=== PATIENT | female | born 1945 | race Caucasian/White ===

== ENCOUNTER 2016-11-10 07:15 | Inpatient (IN) | payer MEDICARE, OTHER, BC ==
[2016-11-10 08:01] LABS: Albumin * 2.9 gm/dl (3.4-5.0); Anion Gap 12.8 mmol/L (6.8-13.8); BUN/Creatinine Ratio 40.3 (9.0-21.6); Bilirubin, Total 0.7 mg/dL (0.0-1.1); Ca. Corrected For Albumin 9.8 mg/dL (8.4-10.2); Calcium * 9.2 mg/dL (7.9-10.9); Carbon Dioxide 28.7 mmol/L (24-32.6); Potassium 4.5 mmol/L (3.4-4.6); Total Protein 6.5 gm/dL (6.2-8.2)
[2016-11-10 08:03] LABS: Hematocrit 44.8 % (37.0-47.0); Hemoglobin 13.2 gm/dL (12.5-16.0); Mean Cell Volume 80.9 fl (78-100); Mean Corpuscular Hemoglobin 23.8 pg (27-31); Mean Corpuscular Hgb Conc 29.5 g/dl (32-36); Mean Platelet Volume 9.7 fl (6.0-9.5); Neutrophil # 14.1 K/mm3 (1.3-6.0); Neutrophil % 89.7 % (42-75.0); Platelet Count 255 K/mm3 (150-450); Red Blood Count 5.54 M/mm3 (4.2-5.4); White Blood Count 15.7 K/mm3 (4.0-10.5)
[2016-11-10] MEDS ORDERED: DILTIAZEM HCL 5 MG/ML VIAL IV ONE ×2 (08:03→08:48)
[2016-11-10] MEDS ORDERED: FLUCONAZOLE 100 MG TABLET PO ONE (08:04)
[2016-11-10] MEDS ORDERED: VANCOMYCIN HCL 1 GM in DEXTROSE 5 % IN WATER 250 ML IV ONE ×4 (08:04→11:15)
[2016-11-10] MEDS ORDERED: NORMAL SALINE 1,000 ML IV ONE ×2 (08:05→09:49)
[2016-11-10] MEDS ORDERED: ALBUTEROL SULFATE/IPRATROPIUM 3 ML NEBU IH ONE ×2 (08:07→08:47)
[2016-11-10] MEDS ORDERED: FLUCONAZOLE 100 MG TABLET ONE (08:47)
[2016-11-10] MEDS: LEVOFLOXACIN/D5W 750 MG/150 ML BAG IV SCH (08:57)
[2016-11-10] MEDS ORDERED: DILTIAZEM HCL 30 MG TABLET PO ONE (09:50)
[2016-11-10] MEDS ORDERED: NORMAL SALINE 1,000 ML IV PRN (09:51)
--- NOTE | 2016-11-10 10:05 | ERNOTE ---
Medical Problem HPI - Narrative Date of Service: 11/10/16 - General Chief Complaint: General Assessment Time Seen by Provider: 11/10/16 07:57 Source: patient, family Exam Limitations: no limitations - Immun/Allergies/Home Medications Immunizations: IMMUNIZATION HX History of Influenza Vaccine No Hx Pneumococcal Vaccination No Allergies/Adverse Reactions: Allergies Penicillins Allergy (Verified 11/10/16 07:25) Home Medications: HOME MEDICATIONS Hydrochlorothiazide [Hydrodiuril] 25 mg PO DAILY 11/10/16 [Last Taken Unknown] Insulin Glargine,Hum.rec.anlog [Lantus] 10 units SC HS 11/10/16 [Last Taken Unknown] Propranolol HCl 40 mg PO DAILY 11/10/16 [Last Taken Unknown] glipiZIDE [Glucotrol] 10 mg PO DAILY@0700 11/10/16 [Last Taken Unknown] - History of Present History Narrative: Patient comes due to weakness, palpitations, fever, and severe skin rash that is getting worse. Timing: constant Severity: moderate Modifying Factors - (Improves): Present: other - nothing Modifying Factors - (Worsens): Present: other - nothing Review of Systems - Review of Systems Constitutional: Present: fever, chills, weakness, malaise EYE: Present: no symptoms reported ENT: Present: no symptoms reported Respiratory: Present: cough, orthopnea. Absent: shortness of breath Cardiology: Present: palpitations, edema. Absent: chest pain, syncope, claudication Gastrointestinal/Abdominal: Absent: nausea, vomiting, diarrhea, constipation, abdominal pain Genitourinary: Present: frequency Musculoskeletal: Present: muscle pain Skin: Present: lesions - multiple target lesion on the L hip, breast, area Neurological: Present: weakness - generalize Endocrine: Present: increased urine Hematologic/Lymphatic: Present: no symptoms reported Psych: Present: no symptoms reported - Patient's Past Medical History Patient History - Medical: Diabetes Type 2 Insulin Dependent, Obesity, Other - A. Fib Patient History - Cardiac/Respiratory: Hypertension Patient History - Cancer: No Hx of Cancer Patient History - Surgical Procedures: Cholecystectomy Patient History - Other: None - Social History Living Situations: home Psych History: No pertinent hx Alcohol Use: none - Immunizations Hx Pneumococcal Vaccination: No History of Influenza Vaccine: No Physical Exam - Physical Exam General Appearance: Present: wd/wn, alert, anxious, obese Eye Exam: Normal inspection: bilateral, PERRL: bilateral, EOMI: bilateral Ears, Nose, Throat: Present: normal pharynx, dry mucous membranes. Absent: hearing decreased, nasal congestion Neck: Present: normal inspection, nontender. Absent: carotid bruit Respiratory: Present: no respiratory distress, normal breath sounds, no accessory muscle use, chest nontender, lungs clear Cardiovascular/Chest: Present: tachycardia, irregularly irregular, systolic murmur - 3/6 Gastrointestinal/Abdominal: Present: soft. Absent: distended, guarding, rebound Back Exam: Present: normal inspection, no CVA tenderness Extremity Exam: Present: pelvis stable. Absent: no edema, bony tenderness Neurological Exam: Present: alert, oriented, normal mood/affect, normal cerebellar test Skin Exam: Present: skin rash - Patient with multiple target lesion below the breasts, L Hip, and pubic area. Patient has associated cellulitis and clear secretions on the area.. Absent: diaphoresis, cyanosis, jaundice Lymphatic Exam: Present: no adenopathy ED Progress - Date and Time Seen: Date and Time: 11/10/16 10:03 Patient's case was presented to Hospitalist and accepted for admission. - Results and Orders Patient's Lab Results:: I have reviewed the patient's lab results. Results and Orders: CBC: Elevated WBC LA: Negative Trop: Negative Procalcitonin: Positive CMP: Elevated Glucose, BUN and Creat - Vital Signs Patient's Vital Signs:: I have reviewed the patient's vital signs. Vital Signs: Vital Signs 11/10/16 11/10/16 11/10/16 07:16 07:31 07:49 Temperature 37.2 C Pulse Rate 137 H 142 H 137 H Respiratory 25 H 28 H 23 H Rate Blood Pressure 103/62 119/63 118/64 O2 Sat by Pulse 87 L 96 94 Oximetry 11/10/16 11/10/16 11/10/16 08:34 08:55 09:05 Temperature Pulse Rate 138 H 137 H 121 H Respiratory 17 18 Rate Blood Pressure 95/65 150/98 148/88 O2 Sat by Pulse 96 92 Oximetry 11/10/16 11/10/16 09:20 09:41 Temperature Pulse Rate 106 H 109 H Respiratory 20 17 Rate Blood Pressure 114/53 134/110 O2 Sat by Pulse 90 99 Oximetry - EKG EKG: atrial fibrillation - Patient knows about it since a couple of months. It was told to her by her previous PCP. EKG read: Interp. by me EKG Comments: A. Fib with FVR (HR: 127), No ST elevation, limited due to moment. - X-Ray X-Ray #1 X-Ray: chest X-ray Comments: No acute processes reported by Radiologist. - Progress/Reassessment Chief Complaint: General Assessment Progress:: Improved - Transfer of Care Expected Disposition: Admit Departure - Departure Clinical Impression: Dehydration Cellulitis Qualifiers: Site of cellulitis: unspecified site Qualified Code(s): L03.90 - Cellulitis, unspecified Disposition: [facility] Condition: Fair
[2016-11-10] MEDS ORDERED: NYSTATIN 30 APPL TUBE TP ONE (10:52)
[2016-11-10] MEDS ORDERED: DILTIAZEM HCL 120 MG CAP.SR.24H PO ONE (11:02)
[2016-11-10] MEDS ORDERED: FUROSEMIDE 10 MG/ML VIAL IV STA (14:32)
[2016-11-10] MEDS ORDERED: SPIRONOLACTONE 25 MG TABLET PO STA (14:33)
[2016-11-10] MEDS ORDERED: DIGOXIN 0.25 MG/ML AMPUL IV STA (14:35)
--- NOTE | 2016-11-10 14:36 | HP ---
Chief Complaint - Chief Complaint Date of Service: 11/10/16 Time of Service: 14:56 Chief Complaint: wweakness and worsening rash for the last few days. History of Present Illness: Patient is a 71-year-old WF with history of HTN, poorly controlled T2 DM, Chronic Afib [not on treatment], morbid obesity [BMI of 54] who came into the ER because of increasing weakness and a rash which was progressively worsening especially in the folds of her abdomen, under the breasts, between her thighs etc. She denies any fevers or chills. Patient used to see Dr. Carter, however has not seen her for some time. Patient is a very poor historian - Patient's Past Medical History Patient History - Medical: Diabetes Type 2 Insulin Dependent, Obesity Patient History - Cardiac/Respiratory: Hypertension Patient History - Cancer: No Hx of Cancer Patient History - Surgical Procedures: Cholecystectomy - in the Patient History - Other: None - Family History Mother Family History - Medical: - 50 DM, rheumatic heart disease Father Family History - Medical: - 70sstroke, HTN. - Social History Living Situations: spouse Psych History: No pertinent hx Smoking Status: Former smoker Have you smoked in the past 12 months: No Alcohol Use: none - Immunizations Hx Pneumococcal Vaccination: No History of Influenza Vaccine: No Review Of Systems (GEN) - Review of Systems Generalized/Overall Review: Present: Weakness, Weight gain Respiratory: Present: Shortness of Breath Cardiac: Present: Edema Abdominal: Absent: Nausea, Vomiting Skin: Present: Lesions, Rash Immunizations: IMMUNIZATION HX History of Influenza Vaccine No Hx Pneumococcal Vaccination No Allergies/Adverse Reactions: Allergies Allergy/AdvReac Type Severity Reaction Status Date / Time Penicillins Allergy Verified 11/10/16 07:25 Home Medications: HOME MEDICATIONS Hydrochlorothiazide [Hydrodiuril] 25 mg PO DAILY 11/10/16 [Last Taken Unknown] Insulin Glargine,Hum.rec.anlog [Lantus] 10 units SC HS 11/10/16 [Last Taken Unknown] Propranolol HCl 40 mg PO DAILY 11/10/16 [Last Taken Unknown] glipiZIDE [Glucotrol] 10 mg PO DAILY@0700 11/10/16 [Last Taken Unknown] Exam - Exam Vital Signs: Vital Signs - Last Taken Temp 36.7 C 11/10/16 11:03 Pulse 127 H 11/10/16 13:25 Resp 24 H 11/10/16 11:03 BP 135/70 11/10/16 11:09 Pulse Ox 96 11/10/16 11:03 Constitutional: Present: Elderly, Morbidly obese, Looks Older than stated age - in NAD on 2L O2 ENT Exam: Present: hearing grossly normal, moist mucous membranes Eye Exam: bilateral eye: PERRL, EOMI Neck: Present: normal inspection, trachea midline Respiratory: Present: decreased breath sounds. Absent: no accessory muscle use Cardiovascular/Chest: Present: irregularly irregular Peripheral Pulses: carotid (R): 2+, carotid (L): 2+ Abdomen: Present: Normal bowel sounds - large PANNUS present, soft, nontender /Rectal: Present: Exam deferred Extremity: Present: normal inspection, pedal edema - 2+ Skin Exam: Present: warm/dry, skin rash - rash all over body and in between folds of the skin [ abd/ breasts, flexures]; open areas on sacral area. Neurologic: Present: alert, oriented x 3, depressed affect Eye contact: Present: cooperative, good eye contact, normal speech Diagnostic Studies: Laboratory Tests 11/10/16 07:45 WBC 15.7 H Hgb 13.2 Hct 44.8 Plt Count 255 11/10/16 07:45 Plasma Sodium 142 Potassium 4.5 Chloride 103 Carbon Dioxide 28.7 BUN 75 H Creatinine 1.86 H Est GFR (Non-Af Amer) 28 L Random Glucose 227 H Calcium Adj for Albumin 9.8 Total Bilirubin 0.7 AST 13 ALT 11 L Alkaline Phosphatase 76 Total Protein 6.5 Albumin 2.9 L 11/10/16 08:00 Lactic Acid, Venous 1.7 Troponin I 0.018 Procalcitonin 0.60 H Assessment/Plan - Narrative Narrative: 1. Afib with RVR: Patient has known the diagnosis for some time. Has had intermittent palpitations since then. As BP is low to normal, try lanoxin .25 mg IV mg Q6H x 4 doses. 2. Fluid overload from sepsis protocol: Furosemide 60 mg IV and spironolactone 12.5 mg PO. Daily weights and strict I' s and O's. Add BNP to labs [may be inaccurate due to increased BUN, obesity]. 3. Uncontrolled T2 DM. A1c pending. Lantus 15 units at bedtime. Humalog 5 units with each meal along with a sliding scale 4. Rash: Trial of Diflucan and possible Bactrim with Hibiclens baths. Dermatology consult inpatient 11/11/16 if available or outpatient. 5. Possible MIRZA: May require home O2 if patient unwilling to have sleep studies. 6. Home situation: Obtain home health care after talking to dependency case manager.
[2016-11-10 15:07] LABS: Hemoglobin A1C 9.6 % (4.00-6.0)
[2016-11-10] MEDS: INSULIN LISPRO 100 UNITS/ML VIAL SC SCH ×2 (17:33→17:34)
[2016-11-10] MEDS ORDERED: INSULIN GLARGINE,HUM.REC.ANLOG 100 UNITS/ML VIAL SC SCH (21:00)
[2016-11-10] MEDS: DIGOXIN 0.25 MG/ML AMPUL IV SCH (21:06)
[2016-11-10] MEDS: NYSTATIN 15 APPL BTL TP SCH (21:12)
[2016-11-11] MEDS: DIGOXIN 0.25 MG/ML AMPUL IV SCH ×2 (03:11→08:58)
[2016-11-11 05:52] LABS: Anion Gap 9.2 mmol/L (6.8-13.8); BUN/Creatinine Ratio 40.6 (9.0-21.6); Calcium * 8.8 mg/dL (7.9-10.9); Estimated Creat Clear 19.5; Potassium 4.2 mmol/L (3.4-4.6)
[2016-11-11 06:02] LABS: Hemoglobin 12.3 gm/dL (12.5-16.0); Mean Cell Volume 85.4 fl (78-100); Mean Corpuscular Hemoglobin 23.9 pg (27-31); Mean Platelet Volume 9.7 fl (6.0-9.5); Neutrophil # 8.4 K/mm3 (1.3-6.0); Neutrophil % 77.9 % (42-75.0); Platelet Count 200 K/mm3 (150-450); Red Blood Count 5.15 M/mm3 (4.2-5.4); Red Cell Distribution Width 15.9 % (11.5-14.0); White Blood Count 10.7 K/mm3 (4.0-10.5)
[2016-11-11] MEDS: ALBUTEROL SULFATE/IPRATROPIUM 3 ML NEBU IH PRN ×2 (07:15→21:27)
[2016-11-11] MEDS: INSULIN LISPRO 100 UNITS/ML VIAL SC SCH ×6 (07:31→17:41)
[2016-11-11] MEDS: NYSTATIN 15 APPL BTL TP SCH ×2 (09:03→21:14)
[2016-11-11] MEDS ORDERED: METOPROLOL SUCCINATE 25 MG TABLET.SA PO STA (10:12)
[2016-11-11] MEDS ORDERED: LEVOFLOXACIN/D5W 750 MG in Premix Bag 1 BAG IV STA (13:24)
--- NOTE | 2016-11-11 19:54 | PN ---
Subjective - Date and Time Seen Date: 11/11/16 Time: 19:40 Subjective Narrative: Feels better, however desaturates into the mid 80s when taken off oxygen. Patient denies cough with sputum production/ pleuritic chest pain. CXR shows possible RT.L.L. infiltrate/atelectasis and vascular congestion not present on yesterday's chest x-ray. Objective - Review of Systems Generalized/Overall Review: Denies: Weight loss Respiratory: Reports: Shortness of Breath. Denies: Cough Cardiac: Reports: Edema. Denies: Palpitations Abdominal: Reports: Abdominal Pain Skin: Reports: Lesions, Rash - Vitals Vitals: Vital Signs Temp 36.6 C 11/11/16 14:55 Pulse 100 11/11/16 14:55 Resp 18 11/11/16 14:55 BP 108/49 11/11/16 14:55 Pulse Ox 92 11/11/16 19:14 - Abnormal Lab Findings Abnormal Lab Findings: Lab Results 11/10/16 11/11/16 07:45 05:20 WBC 15.7 H 10.7 H D Hgb 13.2 12.3 L Hct 44.8 44.0 Plt Count 255 200 11/11/16 05:15 Plasma Sodium 142 Potassium 4.2 Chloride 105 Carbon Dioxide 32.0 BUN 76 H Creatinine 1.87 H Est GFR (Non-Af Amer) 28 L 11/10/16 07:55 Mean Blood Glucose 234 Hemoglobin A1c 9.6 H B-Natriuretic Peptide 21618 H TSH 1.713 11/10/16 11/10/16 08:00 08:35 Lactic Acid, Venous 1.7 Procalcitonin 0.60 H - EKG/Xray Findings EKG: atrial fibrillation - 100-110/min [rythm strip] EKG read: Reviewed by me XRAY: chest Interpretation: Reviewed by me - Exam Constitutional: Present: Elderly, Morbidly obese, Looks Older than stated age - in NAD on 2L O2 ENT Exam: Present: hearing grossly normal, moist mucous membranes Respiratory: Present: decreased breath sounds, crackles - at both bases. Absent : no accessory muscle use Cardiovascular/Chest: Present: tachycardia, systolic murmur, irregularly irregular Abdomen: Present: Normal bowel sounds, soft - large PANNUS present, obese Extremity: Present: lower extremity edema - 2-3+ rash over the lower extremities and flexural areas of knees. Skin Exam: Present: skin rash Neurologic: Present: alert, oriented x 3, depressed affect Assessment/Plan Plan Narrative: 1. Chronic Afib with RVR: Patient loaded with lanoxin 1 mg in 24 hrs. HR between 110-120/m. BP 120-130/ 70. mm try metoprolol succinate at bedtime. Obtain echocardiogram for EF. Continue Lanoxin 0.125 mg QOD. 2. CHF/ pneumonia: Patient to continue Levaquin 750 mg IV every 48 hours due to possible RT. L.L. Infiltrate/atelectasis. Cornet ordered. Patient asymptomatic in terms of productive cough/fever/ chills/pleuritic chest pain. Patient given Furosemide 60 mg IV and spironolactone 12.5 mg PO on 11/10/2016 with poor diuresis. Daily weights and strict I's and O's. BNP 19219; add low dose alvaro. 3. Uncontrolled T2 DM. A1c 9.6 [234 mg/dL]. Lantus 15 ->12 units at bedtime. Humalog 5-> 4 units with each meal along with a sliding scale as BS are mostly below 90 mg/dL today. Dietitian saw patient today. 4. Rash: Trial of Diflucan and possible Bactrim with Hibiclens baths. Obtained consult from Dr. Blanton. Thank you. Will discuss with the pharmacist for any dose adjustments due to elevated BUN/creatinine and as patient is on Levaquin. 5. Possible OS due to morbid obesity: May require home O2 initially and can be re-evaluated 1-2 weeks later. 6. Home situation: Obtain home health care after talking to case management.
[2016-11-11] MEDS ORDERED: INSULIN GLARGINE,HUM.REC.ANLOG 100 UNITS/ML VIAL SC SCH (21:00)
[2016-11-11] MEDS ORDERED: METOPROLOL SUCCINATE 25 MG TABLET.SA PO SCH (21:00)
[2016-11-11] MEDS: SACCHAROMYCES BOULARDII 250 MG CAPSULE PO SCH (21:15)
[2016-11-11] MEDS ORDERED: METOPROLOL SUCCINATE 50 MG TABLET.SA PO ONE (21:47)
[2016-11-11] MEDS: MICONAZOLE NITRATE 85 APPL BTL TP SCH (21:54)
[2016-11-12] MEDS ORDERED: DIGOXIN 0.125 MG TABLET PO SCH (07:00)
[2016-11-12] MEDS: INSULIN LISPRO 100 UNITS/ML VIAL SC SCH ×6 (07:19→18:09)
[2016-11-12] MEDS: LOSARTAN POTASSIUM 50 MG TABLET PO SCH ×2 (08:00→09:25)
[2016-11-12] MEDS ORDERED: LEVOFLOXACIN/D5W 100 ML IV SCH (09:00)
[2016-11-12] MEDS ORDERED: LEVOFLOXACIN/D5W 150 ML IV SCH (09:00)
[2016-11-12 09:23] LABS: Anion Gap 10.3 mmol/L (6.8-13.8); BUN/Creatinine Ratio 41.7 (9.0-21.6); Calcium * 8.7 mg/dL (7.9-10.9); Estimated Creat Clear 22.4; Potassium 4.3 mmol/L (3.4-4.6)
[2016-11-12] MEDS: NYSTATIN 15 APPL BTL TP SCH (09:26)
[2016-11-12] MEDS: SACCHAROMYCES BOULARDII 250 MG CAPSULE PO SCH ×2 (09:26→21:26)
[2016-11-12] MEDS: MICONAZOLE NITRATE 85 APPL BTL TP SCH ×3 (09:31→17:22)
[2016-11-12] MEDS ORDERED: LISINOPRIL 10 MG TABLET PO STA (09:38)
[2016-11-12] MEDS ORDERED: FLUCONAZOLE 100 MG TABLET PO SCH (09:45)
[2016-11-12] MEDS: SULFAMETHOXAZOLE/TRIMETHOPRIM 1 TAB TABLET PO SCH (11:26)
--- NOTE | 2016-11-12 19:07 | PN ---
Subjective - Date and Time Seen Date: 11/12/16 Time: 19:06 Subjective Narrative: Patient states she has noticed swelling in her lower extremities and weight gain for the last 2 weeks prior to her hospitalization. There is no history of fevers/chills/productive cough/pleuritic chest pain. Underwent an echocardiogram today. Her cooks for both of them however he was not present when the dietitian came came in on 11/11/16. She still does not have a good understanding of starches/carbohydrate counting. Ambulates with difficulty to the bathroom and back with walker.[seen by PT]. Objective - Review of Systems Generalized/Overall Review: Reports: Fatigue Respiratory: Reports: Shortness of Breath Cardiac: Reports: Edema, Palpitations Abdominal: Denies: Nausea, Vomiting Neurological: Reports: Anxiety, Depressed - Vitals Vitals: Last Vital Signs Temp 36.9 C 11/12/16 13:47 Pulse 105 H 11/12/16 14:00 Resp 20 11/12/16 13:47 BP 153/65 11/12/16 13:47 Pulse Ox 94 11/12/16 13:47 - Abnormal Lab Findings Abnormal Lab Findings: Laboratory Tests 11/12/16 09:09 Plasma Sodium 143 H Potassium 4.3 Chloride 103 Carbon Dioxide 34.0 H BUN 68 H Creatinine 1.63 H Est GFR (Non-Af Amer) 33 L - EKG/Xray Findings EKG: atrial fibrillation - on EKG strip - rate 100-105 /min - Exam Constitutional: Present: Morbidly obese, Looks Older than stated age - on NAD on 2L O2 ENT Exam: Present: hearing grossly normal, moist mucous membranes Respiratory: Present: decreased breath sounds, crackles - at bases. Absent: no accessory muscle use Abdomen: Present: Normal bowel sounds, soft, nontender, obese - with large PANNUS Extremity: Present: lower extremity edema - 3+ Skin Exam: Present: warm/dry, skin rash Neurologic: Present: alert, oriented x 3, depressed affect Assessment/Plan Plan Narrative: 1. CHF/ pneumonia: Patient given Furosemide 60 mg IV and spironolactone 12.5 mg PO on 11/10/2016 with poor diuresis. BNP 72552. Currently on losartan 25 mg in a.m. and metoprolol ER 50 mg in p.m.. Unlikely to have pneumonia due to patient's history. D/C levofloxacin. 2. Chronic Afib with RVR: On Lanoxin 0.125 mg QOD. and metoprolol ER 50 mg at bedtime from 11/12/2016. TSH 1.713[WNL on 11/10/16]. 3. Uncontrolled T2 DM. A1c 9.6 [234 mg/dL]. Lantus 15 ->12->10 units at bedtime. Humalog 5-> 4 units with each meal along with a sliding scale as BS are mostly below 90 mg/dL today. Dietitian saw patient 11/12/16. BS relatively NL in hospital. 4. Rash: Received consult from Dr. Blanton by fax on 11/12/2016. Dosage of both fluconazole and Bactrim adjusted due to elevated BUN/CR. Fluconazole 100 mg every 48 hours and Bactrim once a day for 10 days. 5. Possible MIRZA due to morbid obesity: Patient will need lifelong oxygen due to obstructive sleep apnea/ hypoventilation/ obesity syndrome/ pulmonary hypertension at 2 L O2. 6. Difficulty in ambulation/walking: Patient will need a walker to assist her for ambulation and prevention of falls due to i morbid obesity [BMI of 55.0] ii CHF iii pulmonary hypertension iv shortness of breath and hypoxia.
[2016-11-12] MEDS: LEVOFLOXACIN/D5W 750 MG/150 ML BAG IV SCH (19:18)
[2016-11-12] MEDS ORDERED: METOPROLOL SUCCINATE 50 MG TABLET.SA PO SCH (21:00)
[2016-11-12] MEDS ORDERED: INSULIN GLARGINE,HUM.REC.ANLOG 100 UNITS/ML VIAL SC SCH (21:00)
[2016-11-13 05:25] LABS: Anion Gap 10.1 mmol/L (6.8-13.8); BUN/Creatinine Ratio 40.9 (9.0-21.6); Calcium * 9.1 mg/dL (7.9-10.9); Carbon Dioxide 31.7 mmol/L (24-32.6); Estimated Creat Clear 20.8; Potassium 4.8 mmol/L (3.4-4.6)
[2016-11-13] MEDS: INSULIN LISPRO 100 UNITS/ML VIAL SC SCH ×6 (06:32→16:45)
[2016-11-13] MEDS: LOSARTAN POTASSIUM 50 MG TABLET PO SCH ×2 (06:36→11:58)
[2016-11-13] MEDS: MICONAZOLE NITRATE 85 APPL BTL TP SCH ×3 (07:59→16:45)
[2016-11-13] MEDS: SACCHAROMYCES BOULARDII 250 MG CAPSULE PO SCH (08:00)
--- NOTE | 2016-11-13 08:51 | ECHO ---
This report is available in the EMR
[2016-11-13] MEDS ORDERED: BISACODYL 5 MG TABLET.DR PO STA (11:23)
[2016-11-13] MEDS: SULFAMETHOXAZOLE/TRIMETHOPRIM 1 TAB TABLET PO SCH (11:54)
[2016-11-13] MEDS ORDERED: TRIAMCINOLONE ACETONIDE 15 APPL TUBE TP SCH (12:00)
[2016-11-13] MEDS ORDERED: FUROSEMIDE IV SCH (12:30)
[2016-11-13] MEDS ORDERED: NORMAL SALINE IV SCH (12:30)
--- NOTE | 2016-11-13 13:02 | CONS ---
- Reason for consultation (1) Cellulitis Date of Service: 11/13/16 Reason for Consultation:: With associated rash HPI - General Date of Service: 11/13/16 Source: patient, RN/MD, EMS notes reviewed Exam Limitations: no limitations - History of Present Illness Initial Comments: Pt. was admitted a few days ago for acute CHF associated with several issues including progressive edema, poorly controlled diabetes, radid atrial fibrillation, and skin changes with cellulitis. She states her breathing and edema has worsened over the last three weeks which may have signalled the onset of her atrial fibrillation. She was treated with IV vancomycin and later Cipro and Bactrim for cellulitis of the lower abdominal panniculus and lower legs. She has been afebrile and blood cultures remain negative. She was started on miconazole powder to the body folds, Diflucan, and topical triamcinolone. She says her skin itches some but is making progress. As noted by Dr. Purcell, her social situation is tenuous. She has not responded well to diuresis and a furosemide drip is being considered. Severity: severe Modifying Factors - (Worsens): Reports: immobilization Associated Symptoms: rash - Her rash is distributed in dependent edematous locations of the lower panniculus and legs., shortness of breath Allergies/Adverse Reactions: Allergies Penicillins Allergy (Verified 11/10/16 07:25) Home Medications: Home Medications Medication Instructions Recorded Last Taken Hydrochlorothiazide [Hydrodiuril] 25 mg PO DAILY 11/10/16 Unknown Insulin Glargine,Hum.rec.anlog 10 units SC HS 11/10/16 Unknown [Lantus] Propranolol HCl 40 mg PO DAILY 11/10/16 Unknown glipiZIDE [Glucotrol] 10 mg PO DAILY@0700 11/10/16 Unknown - Narrative Narrative: No skin disorders in family members. is not affected by skin issues. - Patient's Past Medical History Patient History - Medical: Diabetes Type 2 Insulin Dependent, Obesity Patient History - Cardiac/Respiratory: Atrial Fibrillation - Onset is unknown. She is better rate controlled in the hospital., Hypertension Patient History - Cancer: No Hx of Cancer Patient History - Surgical Procedures: Cholecystectomy - in the Patient History - Other: None - Family History Mother Family History - Medical: - 50sT2 DM, rheumatic heart disease Family History - Cardiac/Respiratory: No pertinent hx Family History - Cancer: No pertinent family hx Father Family History - Medical: - 70sstroke, HTN. Family History - Cardiac/Respiratory: No pertinent hx Family History - Cancer: No pertinent family hx - Social History Living Situations: spouse Psych History: No pertinent hx Smoking Status: Former smoker Have you smoked in the past 12 months: No Alcohol Use: none - Immunizations Hx Pneumococcal Vaccination: No History of Influenza Vaccine: No Medications - Medications Current Medications: Current Medications Albuterol/Ipratropium (Duoneb 2.5-0.5mg/3ml Soln) 3 ml IH Q6H PRN PRN Reason: Shortness Of Breath Stop: 12/11/16 06:53 Last Admin: 11/11/16 21:27 Dose: 3 ml Digoxin (Lanoxin) 0.125 mg PO Q48H [facility] Stop: 12/12/16 07:01 Last Admin: 11/12/16 07:59 Dose: 0.125 mg Fluconazole (Diflucan) 100 mg PO Q48H [facility] Stop: 12/12/16 09:46 Last Admin: 11/12/16 11:26 Dose: 100 mg Insulin Glargine (Lantus) 10 units SC HS [facility] Stop: 12/12/16 21:01 Last Admin: 11/12/16 21:44 Dose: 10 units Insulin Human Lispro (Humalog) 0 - 6 units SC ACINS [facility] PRN Reason: Protocol Stop: 12/10/16 17:01 Last Admin: 11/13/16 11:52 Dose: 2 units Insulin Human Lispro (Humalog) 4 units SC ACINS JENNIE Stop: 12/12/16 07:01 Last Admin: 11/13/16 11:52 Dose: 4 units Losartan Potassium (Cozaar) 50 mg PO DAILY JENNIE Stop: 12/13/16 07:01 Last Admin: 11/13/16 11:58 Dose: Not Given Metoprolol Succinate (Toprol Xl) 50 mg PO HS [facility] Stop: 12/12/16 21:01 Last Admin: 11/12/16 21:30 Dose: 50 mg Miconazole Nitrate (Desenex) 1 appl TP TID JENNIE Stop: 12/11/16 20:01 Last Admin: 11/13/16 07:59 Dose: 1 appl Saccharomyces Boulardii (Florastor) 250 mg PO BID JENNIE Stop: 12/11/16 21:01 Last Admin: 11/13/16 08:00 Dose: 250 mg Triamcinolone Acetonide (Kenalog 0.1%) 1 appl TP BID [facility] Stop: 12/13/16 12:01 Last Admin: 11/13/16 11:56 Dose: 1 appl Trimethoprim/Sulfamethoxazole (Bactrim Ds) 1 tab PO DAILY@1200 JENNIE PRN Reason: Protocol Stop: 12/12/16 12:01 Last Admin: 11/13/16 11:54 Dose: 1 tab Review of Systems - Review of Systems Generalized/Overall Review: Present: Weakness, Weight gain EENTM: Present: No Symptoms Reported Respiratory: Present: Shortness of Breath Abdominal: Present: No Symptoms Reported Genitourinary: Present: No Symptoms Reported Musculoskeletal: Present: Other - Difficulty walking for prolonged periods. Neurological: Present: No Symptoms Reported Skin: Present: Rash - See HPI Endocrine: Present: No Symptoms Reported - Normal TSH upon admission Physical Examination - Exam Vital Signs: Vital Signs - Last Taken Temp 36.3 C L 11/13/16 10:00 Pulse 76 11/13/16 10:00 Resp 20 11/13/16 10:00 BP 115/37 11/13/16 10:00 Pulse Ox 99 11/13/16 10:00 O2 Oxygen Delivery Method Nasal Cannula Constitutional: Present: Moderate distress, Elderly, Morbidly obese Skin Exam: Present: skin rash - The patient has an erythematous rash distributed on several dependent areas. She has prominent edema in these areas. She also has intertrigo like changes of the body folds. Many of the areas seem to be healing with post inflammatory areas noted. She has few open erosions. - Results and Findings: Lab/Microbiology results last 24 hrs: Abnormal/Pending Laboratory Last 24 HRS 11/13/16 05:00 Potassium 4.8 H BUN 72 H Creatinine 1.76 H Est GFR (Non-Af Amer) 30 L BUN/Creatinine Ratio 40.9 H Random Glucose 141 H D - Assessments/Findings (1) Cellulitis Diagnosis(s): The patient's primary problem seems to be edema with associated stasis dermatitis of the lower panniculus of the abdomen and lower extremities. This has lead to some skin breakdown with early blister formation. this also places her at risk for secondary bacterial infection. Lastly, she has significant intertriginous involvement of the body folds. this in turn places her at increased risk for yeast and dermatophyte overgrowth in association with her known diabetes. The patient seems to be improving, and her blood cultures are unremarkable to date. However, her skin will be difficult to improve unless her edema improves. The patient's social situation and motivation are additional barriers. Given the above information, I agree with Dr. Purcell's plan to use a combination of oral Diflucan and Bactrim in modified dosing due to renal issues. As efforts are made to control her rapid atrial fibrillation and diuresis, her tendency toward edema may improve. With regard to her skin care, I might suggest the following (many of these interventions have already been instituted): 1. Diflucan 200 mg on a Friday, Friday, Friday basis for 3 weeks. 2. Bactrim DS twice daily for 10 days. 3. Zeasorb (miconazole) AF powder twice daily to body folds. 4. Start triamcinolone 0.1% cream twice daily to all reddened areas that would be consistent with stasis dermatitis of the lower panniculus and lower legs. 5. I will follow her progress while she is in the hospital and as an outpatient as she improves. Problem: Acute Qualifiers: Site of cellulitis: extremity Site of cellulitis of extremity: lower extremity Qualified Code(s): L03.90 - Cellulitis, unspecified
[2016-11-13 13:53] VITALS: BP 103/59
[2016-11-13] MEDS ORDERED: SPIRONOLACTONE 25 MG TABLET PO STA (15:33)
[2016-11-13 16:10] LABS: Urine Bilirubin Negative (NEGATIVE); Urine Ketone Negative (NEGATIVE); Urine Nitrite Negative (NEGATIVE); Urine Protein Negative (NEGATIVE); Urine Specific Gravity >=1.030 SP.GR. (1.005-1.010); Urine Urobilinogen Normal (NORMAL); Urine pH 5.5 pH (5.0-7.0)
--- NOTE | 2016-11-13 16:27 | DS ---
Transfer Discharge Summary - Diagnosis(s)/Problems (1) Afib with RVR Problem: Acute (2) (HFpEF) heart failure with preserved ejection fraction Narrative: Acute on chronic Problem: Acute (3) Pulmonary hypertension Problem: Chronic (4) Morbid obesity Narrative: BMI-55.0 Problem: Chronic - Course Description of Stay: DATE OF ADMISSION: 11/10/2016. DATE OF TRANSFER/DISCHARGE: 11/13/2016. DIAGNOSTICS: 2-D ECHO: 11/12/2016. CONSULTATIONS: Dr. Blanton [Dermatology]. Dr. Lim [Cardiology]. HOSPITAL COURSE: Patient is a 71-year-old WF with a H/O HTN poorly controlled T2DM, HLD, was initially admitted due to marketed swelling in the lower extremities and shortness of breath. Her BUN/CR on admission was 75/1.86 and BNP 92493. She also had A. fib with RVR. She was treated with digoxin 0.25 mg IV every 6 hours 4 doses as her blood pressures were low and her HR was in the 130's. She was later started on metoprolol ER at . A1c was 9.6 [2 34 mg/dL]. Echocardiogram showed normal EF with RVSP of 65 mmHg indicative of Pulm. HTN. Patient did not respond well to IV diuretics x1 and BUN/cr remained about the same. ABGs on 2L: PH 7.17 PCO2 83, however patient was able to answer most questions. Most likely patient has MIRZA with hypoventilation obesity syndrome. There was no change in BUN/CR before and after treatment with diuretics/ antibiotics. The patient was transferred to [facility] as she required a higher level of care[ including nephrology for ultrafiltration/temporary dialysis and cardiology] after discussion with the hospitalist. The patient was stable at the time of transfer. More than 30 minutes was spent in preparing and dictating the discharge summary. Procedures Performed: none - Results and Findings Results and Findings: Laboratory Tests 11/10/16 11/11/16 07:45 05:20 WBC 15.7 H 10.7 H D Hgb 13.2 12.3 L Hct 44.8 44.0 Plt Count 255 200 11/10/16 11/11/16 11/12/16 11/13/16 07:45 05:15 09:09 05:00 Plasma Sodium 142 142 143 H 141 Potassium 4.5 4.2 4.3 4.8 Chloride 103 105 103 103 Carbon Dioxide 28.7 32.0 34.0 H 31.7 BUN 75 H 76 H 68 H 72 H Creatinine 1.86 H 1.87 H 1.63 H 1.76 H Est GFR (Non-Af Amer) 28 L 28 L 33 L Random Glucose 227 H Calcium Adj for Albumin 9.8 Total Bilirubin 0.7 AST 13 ALT 11 L Alkaline Phosphatase 76 Total Protein 6.5 Albumin 2.9 L 11/10/16 11/10/16 07:55 08:00 Mean Blood Glucose 234 Hemoglobin A1c 9.6 H Lactic Acid, Venous 1.7 Troponin I 0.018 Procalcitonin 0.60 H TSH 1.713 CXR: PA and lateral:11/11/2016: 06:53. IMPRESSION: 1. Right basilar atelectasis versus consolidation. Correlate clinically for pneumonia. Consider follow-up to document resolution. 2. Mildly increased vascular markings noted. Consider pulmonary venous congestion. 3. Stable cardiomegaly. DJD of spine. Elevated right hemidiaphragm. 2-D ECHOCARDIOGRAM: 11/12/2016: Moderate concentric LVH with EF 65%. Mild to mod. ALONDRA. Mild to mod. RVE. Small pericardial effusion. RVSP elevated at 65 mm Hg indicative of Pulm. HTN. Dilated IVC suggests increased RAP. ABGs on 2 L O2: 11/13/2016: 15:04: PH 7.17 PCO2 83.0 PO2 75.4 - Medications Medications: Active Medications Albuterol/Ipratropium (Duoneb 2.5-0.5mg/3ml Soln) 3 ml IH Q6H PRN PRN Reason: Shortness Of Breath Stop: 12/11/16 06:53 Last Admin: 11/11/16 21:27 Dose: 3 ml Digoxin (Lanoxin) 0.125 mg PO Q48H [facility] Stop: 12/12/16 07:01 Last Admin: 11/12/16 07:59 Dose: 0.125 mg Fluconazole (Diflucan) 100 mg PO Q48H [facility] Stop: 12/12/16 09:46 Last Admin: 11/12/16 11:26 Dose: 100 mg Furosemide 100 mg/ Sodium (Chloride) 100 mls @ 7.5 mls/hr IV .[id number] [facility] Stop: 12/13/16 12:31 Last Infusion: 11/13/16 15:20 Dose: 7.5 mls/hr Insulin Glargine (Lantus) 10 units SC HS [facility] Stop: 12/12/16 21:01 Last Admin: 11/12/16 21:44 Dose: 10 units Insulin Human Lispro (Humalog) 0 - 6 units SC ACINS [facility] PRN Reason: Protocol Stop: 12/10/16 17:01 Last Admin: 11/13/16 11:52 Dose: 2 units Insulin Human Lispro (Humalog) 4 units SC ACINS [facility] Stop: 12/12/16 07:01 Last Admin: 11/13/16 11:52 Dose: 4 units Losartan Potassium (Cozaar) 50 mg PO DAILY [facility] Stop: 12/13/16 07:01 Last Admin: 11/13/16 11:58 Dose: Not Given Metoprolol Succinate (Toprol Xl) 50 mg PO [facility] Stop: 12/12/16 21:01 Last Admin: 11/12/16 21:30 Dose: 50 mg Miconazole Nitrate (Desenex) 1 appl TP TID [facility] Stop: 12/11/16 20:01 Last Admin: 11/13/16 14:08 Dose: 1 appl Saccharomyces Boulardii (Florastor) 250 mg PO BID [facility] Stop: 12/11/16 21:01 Last Admin: 11/13/16 08:00 Dose: 250 mg Triamcinolone Acetonide (Kenalog 0.1%) 1 appl TP BID [facility] Stop: 12/13/16 12:01 Last Admin: 11/13/16 11:56 Dose: 1 appl Trimethoprim/Sulfamethoxazole (Bactrim Ds) 1 tab PO DAILY@1200 [facility] PRN Reason: Protocol Stop: 12/12/16 12:01 Last Admin: 11/13/16 11:54 Dose: 1 tab Discontinued Medications Albuterol/Ipratropium (Duoneb 2.5-0.5mg/3ml Soln) 3 ml IH ONCE ONE Stop: 11/10/16 08:08 Last Admin: 11/10/16 08:57 Dose: 3 ml Bisacodyl (Dulcolax) 10 mg PO ONCE STA Stop: 11/13/16 11:24 Last Admin: 11/13/16 11:55 Dose: 10 mg Digoxin (Lanoxin) 0.25 mg IV ONCE STA Stop: 11/10/16 14:36 Last Admin: 11/10/16 14:51 Dose: 0.25 mg Digoxin (Lanoxin) 0.25 mg IV Q6H JENNIE Stop: 11/11/16 09:01 Last Admin: 11/11/16 08:58 Dose: 0.25 mg Diltiazem HCl (Cardizem) 20 mg IV ONCE ONE Stop: 11/10/16 08:04 Last Admin: 11/10/16 08:55 Dose: 20 mg Diltiazem HCl (Cardizem) 120 mg PO ONCE ONE Stop: 11/10/16 09:51 Last Admin: 11/10/16 11:09 Dose: 120 mg Fluconazole (Diflucan) 100 mg PO ONCE ONE Stop: 11/10/16 08:05 Last Admin: 11/10/16 08:52 Dose: 100 mg Furosemide (Lasix) 60 mg IV ONCE STA Stop: 11/10/16 14:33 Last Admin: 11/10/16 14:50 Dose: 60 mg Vancomycin HCl 1 gm/ Dextrose/ (Water) 250 mls @ 140 mls/hr IV ONCE ONE PRN Reason: Protocol Stop: 11/10/16 09:51 Last Admin: 11/10/16 11:09 Dose: Not Given Sodium Chloride (Sodium Chloride 0.9%) 1,000 mls @ 999 mls/hr IV .Q1H1M ONE Stop: 11/10/16 09:05 Last Infusion: 11/10/16 10:51 Dose: Infused Levofloxacin/Dextrose (Levaquin) 750 mg in 150 mls @ 100 mls/hr IV Q24H [facility] Stop: 12/10/16 08:16 Last Admin: 11/12/16 19:18 Dose: Not Given Sodium Chloride (Sodium Chloride 0.9%) 1,000 mls @ 999 mls/hr IV .Q1H1M ONE Stop: 11/10/16 10:49 Last Admin: 11/10/16 11:08 Dose: 999 mls/hr Sodium Chloride (Sodium Chloride 0.9%) 1,000 mls @ 75 mls/hr IV .[id number] PRN PRN Reason: HYDRATION Stop: 12/10/16 09:52 Last Admin: 11/10/16 14:02 Dose: 75 mls/hr Vancomycin HCl 1 gm/ Dextrose/ (Water) 250 mls @ 140 mls/hr IV ONCE ONE PRN Reason: Protocol Stop: 11/10/16 13:02 Last Admin: 11/10/16 11:22 Dose: 140 mls/hr Levofloxacin/Dextrose (Levaquin) 150 mls @ 100 mls/hr IV Q48H JENNIE Stop: 12/12/16 09:01 Last Admin: 11/12/16 09:25 Dose: 100 mls/hr Insulin Glargine (Lantus) 15 units SC HS JENNIE Stop: 12/10/16 21:01 Last Admin: 11/10/16 21:00 Dose: 15 units Insulin Glargine (Lantus) 12 units SC HS [facility]ENN[facility] Stop: 12/11/16 21:01 Last Admin: 11/11/16 21:26 Dose: Not Given Insulin Human Lispro (Humalog) [address] [facility] Stop: 12/10/16 17:01 Last Admin: 11/11/16 17:41 Dose: 5 units Losartan Potassium (Cozaar) 25 mg PO DAILY [facility] Stop: 12/12/16 08:01 Last Admin: 11/12/16 09:25 Dose: 25 mg Metoprolol Succinate (Toprol Xl) 25 mg PO ONCE STA Stop: 11/11/16 10:13 Last Admin: 11/11/16 10:58 Dose: 25 mg Metoprolol Succinate (Toprol Xl) 37.5 mg PO [facility] Stop: 12/11/16 21:01 Last Admin: 11/11/16 21:52 Dose: 37.5 mg Nystatin (Mycostatin Powder) 1 appl TP BID [facility]ENN[facility] Stop: 12/10/16 21:01 Last Admin: 11/12/16 09:26 Dose: 1 appl Spironolactone (Aldactone) 12.5 mg PO ONCE STA Stop: 11/10/16 14:34 Last Admin: 11/10/16 14:50 Dose: 12.5 mg Spironolactone (Aldactone) 50 mg PO ONCE STA Stop: 11/13/16 15:34 Last Admin: 11/13/16 15:55 Dose: 50 mg - Disposition Disposition: [facility] Condition: Undetermined Discharge Date: 11/13/16 Discharge Time: 17:30
[2016-11-13 16:39] LABS: Urine Appearance Clear; Urine Bacteria 1+; Urine Blood 10 /ul (NEGATIVE); Urine Color Yellow; Urine RBC None Seen /hpf (0-5); Urine WBC None Seen /hpf (0-5)
[2016-11-13 16:40] LABS: Urine Amorphous Sediment TRACE (NONE-FEW)
== END 2016-11-13 17:45 | disposition short-term general hospital (02) | DRG 292 ==
LOC: ER 07:15 → MS 09:51
PROVIDERS: ADMIT Internal Medicine; ATTEND Internal Medicine
PROC: B246ZZZ Ultrasonography of Right and Left Heart (ICD-10-PCS; 2016-11-12)
PROC: 4A033R1 Measurement of Arterial Saturation, Peripheral, Percutaneous Approach (ICD-10-PCS; principal; 2016-11-13)
DX: I50.33 Acute on chronic diastolic (congestive) heart failure (principal); Z68.43 Body mass index [BMI] 50.0-59.9, adult; L03.90 Cellulitis, unspecified; I87.2 Venous insufficiency (chronic) (peripheral); R21 Rash and other nonspecific skin eruption; E11.65 Type 2 diabetes mellitus with hyperglycemia; R06.89 Other abnormalities of breathing; G47.33 Obstructive sleep apnea (adult) (pediatric); R26.2 Difficulty in walking, not elsewhere classified; E66.01 Morbid (severe) obesity due to excess calories; I27.2 Other secondary pulmonary hypertension; I10 Essential (primary) hypertension; I48.2 Chronic atrial fibrillation; Z79.4 Long term (current) use of insulin

== ENCOUNTER 2016-12-27 11:35 | Inpatient (IN) | payer MEDICARE, OTHER, BC ==
--- OUTSIDE RECORDS SUMMARY | 2016-12-27 12:34 | XMS REPORT | Continuity of Care Document ---
:1945 Author Organization [facility] ([facility]) [place] [address] Phone [phone] Care Team Providers Name Role Phone Rocco Purcell Primary Care Provider [phone] Source Comments This disclosure is being made pursuant to the Care Everywhere program, applicable federal and state laws, and may not contain all informaitonavailable regarding this patient.[facility] ([facility]) Active Allergies and Adverse Reactions Not on File Current Medications Not on file Active Problems Not on file Most Recent Encounters Date Type Specialty Providers Description 11/16/2016 Lab Requisition Pathology Lab Services, [facility] Dx: Neoplasm of uncertain behavior of skin 11/13/2016 Office Visit [facility] Dx: Biventricular S, DO failure (Primary Dx) Social History Tobacco Use Types Packs/Day Years Used Date Never Assessed Plan of Care Health Maintenance Due Date Last Done Comments HCV Screening 1945 Hepatitis B Vaccine (1 of 3 - Primary Series) 1945 Tdap Vaccine 1955 Lipid Disorder Screening 1962 Td Vaccine 1962 Mammogram 1984 Colonoscopy 1994 Zoster Vaccine 2004 Osteoporosis Screening (DXA Bone Density) 2009 Pneumococcal Vaccine (1 of 2 - PCV13) 2009 Influenza Vaccine: Seasonal (#1) 04/08/2016 Results from Last 3 Months DERMATOPATHOLOGY EXAM (11/15/2016 11:09 AM) Component Value Range Case Report Surgical Pathology Case: [id number] Authorizing Provider:Lab Services, [facility] Collected: 11/15/2016 11:09 AM Pathologist: Noemí Aviles MD Received: 11/16/2016 11:09 AM Specimens: A) - Skin, other, specify, R THIGH IN FORMALIN B) - Skin, other, specify, R THIGH IN DARINEL MEDIA Diagnosis A.Skin, right thigh in formalin, punch biopsy: Spongiotic dermatitis with eosinophils consistent with an eczematous dermatitis. B.Skin, right thigh in Cesar's media, punch biopsy: Please see immunopathology report. I have personally reviewed this case and edited the report as necessary. Clinical Information Tissue source/site: [id number] thigh (DIF). R thigh. Pertinent clinical history and findings: Erythematous scaling eruption of various patches. Clinical differential diagnosis: Stasis derm vs leukocytoclastic vasculitis vs bullous pemphigoid. Gross Description A.Received in formalin, in a container labeled Jayson Courtney, date of , and "R THIGH IN FORMALIN", is a 0.4 cm in diameter x 0.4 cm in length schilling punch biopsy.The specimen is inked, bisected and submitted entirely in A1. ESF/nicolas B.Received in [employer], labeled Jayson Courtney, date of , and "R THIGH IN DARINEL MEDIA", is a 0.3 cm in diameter x 0.3 cm in length schilling punch biopsy.The specimen is entir niraj submitted and sent to Immunopathology for immunofluorescence studies. ESF/nicolas Microscopic Description A.Sections show spongiosis with exocytosis and superficial perivascular chronic inflammation.There are numerous eos scattered within the perivascular inflammation, but eosinophils do not seemto favor the dermal epidermal junction. B.Please see immunopathology report. Performed by:Jovi Gimenez MD, R4/rls Immunofluorescence IMMUNOPATHOLOGY Direct immunofluorescence studies are performed on frozen sections of skin biopsy using the listed panel of antibodies. No marking for IgG, IgA, IgM, C3, or fibrinogen is identified within the epiderm is, along the dermal-epidermal junction, or around dermal vessels.These findings provide no immunopathologic evidence for leukocytoclastic vasculitis or other antibody-mediated bullous disease atthis time. I have personally reviewed this case and edited the report as necessary. Sukhwinder Mckinnon MD, PhD Immunology IHC: All controls show appropriate reactivity. This test was developed and its performance characteristics determined by the immunopathology Laboratory at the [facility]. It has not been cleared or approved by the US Food and Drug Administration.FDA does not require this test to go through premarket FDA review.This test is used for clinical purposes.It should not be regarded as investigational or fo r research. This laboratory is certified under the Clinical Laboratory Improvement Amendments (CLIA) as qualified to perform high complexity clinical laboratory testing. Specimen Skin - Skin, other, specify
[2016-12-27] MEDS ORDERED: FUROSEMIDE 10 MG/ML VIAL IV ONE (12:39)
[2016-12-27] MEDS ORDERED: FUROSEMIDE 10 MG/ML VIAL ONE (12:43)
[2016-12-27 13:10] LABS: Hematocrit 35.5 % (37.0-47.0); Hemoglobin 10.2 gm/dL (12.5-16.0); Mean Cell Volume 84.3 fl (78-100); Mean Corpuscular Hemoglobin 24.2 pg (27-31); Mean Corpuscular Hgb Conc 28.7 g/dl (32-36); Mean Platelet Volume 10.1 fl (6.0-9.5); Neutrophil # 4.6 K/mm3 (1.3-6.0); Neutrophil % 67.1 % (42-75.0); Platelet Count 324 K/mm3 (150-450); Red Blood Count 4.21 M/mm3 (4.2-5.4); Red Cell Distribution Width 20.7 % (11.5-14.0); White Blood Count 6.9 K/mm3 (4.0-10.5)
[2016-12-27 13:24] LABS: INR 1.15 INR (0.90-1.10); Partial Thrombolplastin Time 24.5 Seconds (24-32)
[2016-12-27 13:29] LABS: Troponin I Less than 0.017 ng/ml (0.00-0.10)
[2016-12-27 13:31] LABS: ALT 31 U/L (19-67); AST 29 U/L (0-48); Albumin * 2.9 gm/dl (3.4-5.0); Alkaline Phosphatase * 323 U/L (50-170); Anion Gap 11.3 mmol/L (6.8-13.8); BNP * 8900 pg/mL (5-325); BUN/Creatinine Ratio 31.9 (9.0-21.6); Bilirubin, Total 0.8 mg/dL (0.0-1.1); Blood Urea Nitrogen 43 mg/dL (3-23); Ca. Corrected For Albumin 9.7 mg/dL (8.4-10.2); Calcium * 9.1 mg/dL (7.9-10.9); Carbon Dioxide 34.2 mmol/L (24-32.6); Chloride 97 mmol/L (97-106); Glucose * 127 mg/dL (70-110); Potassium 3.5 mmol/L (3.4-4.6); Sodium 139 mmol/L (132-142); Total Protein 6.9 gm/dL (6.2-8.2)
--- NOTE | 2016-12-27 13:32 | ERNOTE ---
Medical Problem HPI - Narrative Date of Service: 12/27/16 - General Chief Complaint: General Assessment Time Seen by Provider: 12/27/16 12:12 Source: patient Exam Limitations: no limitations - Immun/Allergies/Home Medications Immunizations: IMMUNIZATION HX History of Influenza Vaccine No Hx Pneumococcal Vaccination No Allergies/Adverse Reactions: Allergies Penicillins Allergy (Verified 12/27/16 12:07) Home Medications: HOME MEDICATIONS Hydrochlorothiazide [Hydrodiuril] 12.5 mg PO DAILY 11/10/16 [Last Taken Unknown] Insulin Glargine,Hum.rec.anlog [Lantus] 10 units SC HS 11/10/16 [Last Taken Unknown] glipiZIDE [Glucotrol] 5 mg PO DAILY@0700 11/10/16 [Last Taken Unknown] Acetaminophen [Mapap] 650 mg PO HS 12/27/16 [Last Taken Unknown] Aspirin [Aspirin EC] 81 mg PO DAILY 12/27/16 [Last Taken Unknown] Budesonide [Pulmicort Respules] 2 ml IH BID 12/27/16 [Last Taken Unknown] Bumetanide 2 mg PO BID 12/27/16 [Last Taken Unknown] Cephalexin [Keflex] 500 mg PO QID 12/27/16 [Last Taken Unknown] Cod Liver Oil/Zinc Oxide [Desitin] 1 appl TP TID 12/27/16 [Last Taken Unknown] Ergocalciferol (Vitamin D2) [Vitamin D2] 50,000 unit PO Q7D 12/27/16 [Last Taken Unknown] Fluconazole [Diflucan] 200 mg PO DAILY 12/27/16 [Last Taken Unknown] Fluticasone Furoate [Flonase Sensimist] 1 spray NS DAILY 12/27/16 [Last Taken Unknown] Formoterol Fumarate [Perforomist] 20 mcg IH BID 12/27/16 [Last Taken Unknown] Insulin Lispro [Humalog] 0 - 12 units SC ACHS 12/27/16 [Last Taken Unknown] Ipratropium Hawks 0.2 mg IH Q4H PRN 12/27/16 [Last Taken Unknown] LORazepam [Ativan] 0.25 mg PO HS 12/27/16 [Last Taken Unknown] Metoprolol Succinate [Toprol Xl] 50 mg PO TID 12/27/16 [Last Taken Unknown] Miconazole Nitrate [Micro-Guard] 1 appful TP BID 12/27/16 [Last Taken Unknown] Triamcinolone Acetonide [Kenalog 0.1%] 1 appl TP BID 12/27/16 [Last Taken Unknown] Umeclidinium Hawks [Incruse Ellipta] 1 puff IH DAILY 12/27/16 [Last Taken Unknown] Vitamin E [E-Cream] 1 appl TP TID 12/27/16 [Last Taken Unknown] - History of Present History Narrative: Patient was send for evaluation. Patient has been with AMS, Leg Swelling, and Some crackles. Patient recognize her leg swelling and lung sounds but denied any AMS. She reported that she has been aware of her condition. Timing: constant Severity: mild Modifying Factors - (Improves): Present: other - nothing Modifying Factors - (Worsens): Present: other - nothing Review of Systems - Review of Systems Constitutional: Absent: fever, chills, weakness, fatigue, malaise EYE: Present: no symptoms reported ENT: Present: no symptoms reported Respiratory: Absent: shortness of breath, cough, wheezing Cardiology: Present: edema - lower extremities bilateral. Absent: chest pain, palpitations, syncope Genitourinary: Present: no symptoms reported Musculoskeletal: Present: no symptoms reported. Absent: joint swelling Skin: Present: other - erythema on lower extremies. Absent: lesions Neurological: Present: no symptoms reported Endocrine: Present: no symptoms reported Hematologic/Lymphatic: Present: no symptoms reported Psych: Present: no symptoms reported All Other Systems: All systems neg except as marked - Patient's Past Medical History Patient History - Medical: Diabetes Type 2 Insulin Dependent, Obesity Patient History - Cardiac/Respiratory: Atrial Fibrillation, Hypertension Patient History - Cancer: No Hx of Cancer Patient History - Surgical Procedures: Cholecystectomy Patient History - Other: None - Family History Mother Family History - Medical: Family History - Cardiac/Respiratory: No pertinent hx Family History - Cancer: No pertinent family hx Father Family History - Medical: Family History - Cardiac/Respiratory: No pertinent hx Family History - Cancer: No pertinent family hx - Social History Living Situations: shelter Psych History: No pertinent hx Alcohol Use: none - Immunizations Hx Pneumococcal Vaccination: No History of Influenza Vaccine: No Physical Exam - Physical Exam General Appearance: Present: wd/wn, alert, no apparent distress Ears, Nose, Throat: Present: normal ENT inspection, normal pharynx. Absent: dry mucous membranes Neck: Present: normal inspection, nontender. Absent: carotid bruit Respiratory: Present: no respiratory distress, no accessory muscle use, chest nontender, rales - lower 1/3 of lungs Cardiovascular/Chest: Present: regular rate, rhythm, no murmur, normal peripheral pulses Gastrointestinal/Abdominal: Present: normal bowel sounds, nontender, nondistended, soft, no organomegaly Rectal Exam: Present: nontender, normal rectal tone Back Exam: Present: normal inspection, normal range of motion, no CVA tenderness , no vertebral tenderness Extremity Exam: Present: normal inspection, non-tender, normal range of motion, other - Patient with erythema on the lower extremities. There is pitting edema noticed bilateral. Neurological Exam: Present: alert, oriented, normal mood/affect, no motor/ sensory deficits Skin Exam: Present: normal color, warm/dry Lymphatic Exam: Present: no adenopathy ED Progress - Date and Time Seen: Date and Time: 12/27/16 13:45 Venous Doppler added as recommendation from PCP due to leg swelling. 12/27/16 15:04 Patient at the moment with no distress and has improved, but still need O2 and HR is above 100. Patient is been Tx for cellulitis. Patient's case was presented to Hospitalist Service and accepted for in-patient Tx. - Results and Orders Patient's Lab Results:: I have reviewed the patient's lab results. Results and Orders: CBC: Mild Anemia Hgb: > 10 CMP: Low Albumin level, Elevated A. Phost Trop: Negative BNP: Positive - Vital Signs Patient's Vital Signs:: I have reviewed the patient's vital signs. Vital Signs: Vital Signs 12/27/16 12/27/16 12/27/16 11:38 12:07 13:07 Temperature 36.3 C L Pulse Rate 100 118 H 125 H Respiratory 17 16 Rate Blood Pressure 163/111 147/74 147/84 O2 Sat by Pulse 100 100 Oximetry - EKG EKG: atrial fibrillation EKG read: Interp. by me EKG Comments: A. Fib with FVR, HR: 115, No ST Elevation, No changes from previous. - X-Ray X-Ray #1 X-Ray: chest X-ray Comments: No acute process found by Radiologist - CT/Ultrasound CT/Ultrasound Narrative: Venous Doppler: No DVT reported by Radiologist - Progress/Reassessment Chief Complaint: General Assessment Progress:: Improved Departure - Departure Clinical Impression: (HFpEF) heart failure with preserved ejection fraction Morbid obesity Qualifiers: Obesity type: unspecified obesity type Qualified Code(s): E66.01 - Morbid ( severe) obesity due to excess calories Cellulitis Qualifiers: Site of cellulitis: unspecified site Qualified Code(s): L03.90 - Cellulitis, unspecified Condition: Fair Referrals: Willis Bryan MD [Primary Care Provider] -
--- OUTSIDE RECORDS SUMMARY | 2016-12-27 15:10 | XMS REPORT | Continuity of Care Document ---
:1945 Author Organization [facility] ([facility]) [place] [address] Phone [phone] Care Team Providers Name Role Phone Rocco Purcell Primary Care Provider [phone] Source Comments This disclosure is being made pursuant to the Care Everywhere program, applicable federal and state laws, and may not contain all informaitonavailable regarding this patient.[facility] ([facility]) Active Allergies and Adverse Reactions Not on File Current Medications Not on file Active Problems Not on file Most Recent Encounters Date Type Specialty Providers Description 11/16/2016 Lab Requisition Pathology Lab Services, [facility] Dx: Neoplasm of uncertain behavior of skin [...] Value Range Case Report Surgical Pathology Case: [id number] Authorizing Provider:Lab [facility], [facility] Collected: 11/15/2016 11:09 AM Pathologist: Noemí Aviles [...] report as necessary. Clinical Information Tissue source/site: [id number] (DIF). R thigh. Pertinent clinical history [...] determined by the immunopathology Laboratory at the [facility]. It has not been cleared or approved [...]
[2016-12-27] MEDS ORDERED: IPRATROPIUM BROMIDE 0.5 MG/2.5 ML VIAL.NEB IH PRN (19:05)
[2016-12-27] MEDS ORDERED: METOLAZONE 2.5 MG TABLET PO SCH (19:30)
[2016-12-27 19:36] LABS: Iron 48 mcg/dL (35-120); Transferrin Sat. (% Sat.) 18 % (15-55)
[2016-12-27] MEDS ORDERED: FUROSEMIDE IV ONE (19:45)
[2016-12-27] MEDS ORDERED: NORMAL SALINE IV ONE (19:45)
[2016-12-27] MEDS ORDERED: FUROSEMIDE 10 MG/ML VIAL IV SCH (20:00)
[2016-12-27] MEDS ORDERED: SPIRONOLACTONE 25 MG TABLET PO SCH (20:00)
--- NOTE | 2016-12-27 20:20 | HP ---
Chief Complaint - Chief Complaint Date of Service: 12/27/16 Time of Service: 20:16 Chief Complaint: "Nausea, leg swelling.". Source of HPI- Pt; unreliable historian, ER provider notes. History of Present Illness: Mr. Courtney is a 71-yr-old WF pt of Dr. Corea with a PMH of: A-fib, CHF, Cellulitis, COPD, DM II, Morbid Obesity, MIRZA The pt is not a reliable historian and can only tell me the reason she came here was because of Nausea. She is a senior care care resident at [facility]. Apparently pt was send to the [facility] ER due to AMS, leg swelling and adventitious LS. During evaluation at the ED,the Hematology and Chemistry labs were mostly unremarkable.The CXR also did not have any acute cardiopulmonary findings. However, her BNP was elevated at 8900, and was noted to have + 3-4 BLE pitting edema. She was noted to have Erythema on BLE but Venous US did not show evidence of DVT. Pt will need to be admitted inpatient for a minimum of 2 midnights due to signs of CHF exacerbation/ Fluid Overload which will respond well to IV diuretics. - Patient's Past Medical History Patient History - Medical: Diabetes Type 2 Insulin Dependent, Obesity Patient History - Cardiac/Respiratory: Atrial Fibrillation, CHF, COPD, Hypertension Patient History - Cancer: No Hx of Cancer Patient History - Surgical Procedures: Cholecystectomy, EGD Patient History - Other: None - Family History Mother Family History - Medical: Family History - Cardiac/Respiratory: No pertinent hx Family History - Cancer: No pertinent family hx Father Family History - Medical: Family History - Cardiac/Respiratory: No pertinent hx, CVA/Stroke Family History - Cancer: No pertinent family hx - Social History Living Situations: half-way Abuse History: No History of abuse Psych History: No pertinent hx Smoking Status: Former smoker Have you smoked in the past 12 months: No Do you dip or chew tobacco: No Smoking Start Date: 09/08/1957 Smoking Stop Date: 09/08/99 Patient requests Smoking Cessation Consult: No Initiate information on Smoking Cessation: No Alcohol Use: none - Immunizations Hx Pneumococcal Vaccination: No History of Influenza Vaccine: No Review Of Systems (GEN) - Review of Systems Generalized/Overall Review: Present: Weakness, Weight gain. Absent: Chills, Fever, Diaphoresis, Fatigue EENTM: Absent: Double Vision, Nose Congestion, Throat Pain Respiratory: Present: Shortness of Breath - occcasional. Absent: Cough, Orthopnea Cardiac: Absent: Chest Pain, Edema Abdominal: Absent: Nausea, Vomiting Genitourinary: Absent: Burning, Itching, Urgency, Frequency Musculoskeletal: Present: Joint Pain, Muscle Pain Neurological: Present: Weakness. Absent: Headache, Anxiety, Depressed Skin: Present: Dryness, Lesions, Bruising Endocrine: Present: Intolerance to Cold. Absent: Flushing, Increased Thirst Misc: All systems neg except as marked Allergies/Adverse Reactions: Allergies Allergy/AdvReac Type Severity Reaction Status Date / Time Penicillins Allergy Verified 12/27/16 12:07 Home Medications: HOME MEDICATIONS Hydrochlorothiazide [Hydrodiuril] 12.5 mg PO DAILY 11/10/16 [Last Taken Unknown] Insulin Glargine,Hum.rec.anlog [Lantus] 10 units SC HS 11/10/16 [Last Taken Unknown] glipiZIDE [Glucotrol] 5 mg PO DAILY@0700 11/10/16 [Last Taken Unknown] Acetaminophen [Mapap] 650 mg PO HS 12/27/16 [Last Taken Unknown] Aspirin [Aspirin EC] 81 mg PO DAILY 12/27/16 [Last Taken Unknown] Budesonide [Pulmicort Respules] 2 ml IH BID 12/27/16 [Last Taken Unknown] Bumetanide 2 mg PO BID 12/27/16 [Last Taken Unknown] Cephalexin [Keflex] 500 mg PO QID 12/27/16 [Last Taken Unknown] Cod Liver Oil/Zinc Oxide [Desitin] 1 appl TP TID 12/27/16 [Last Taken Unknown] Ergocalciferol (Vitamin D2) [Vitamin D2] 50,000 unit PO Q7D 12/27/16 [Last Taken Unknown] Fluconazole [Diflucan] 200 mg PO DAILY 12/27/16 [Last Taken Unknown] Fluticasone Furoate [Flonase Sensimist] 1 spray NS DAILY 12/27/16 [Last Taken Unknown] Formoterol Fumarate [Perforomist] 20 mcg IH BID 12/27/16 [Last Taken Unknown] Insulin Lispro [Humalog] 0 - 12 units SC ACHS 12/27/16 [Last Taken Unknown] Ipratropium [place] 0.2 mg IH Q4H PRN 12/27/16 [Last Taken Unknown] LORazepam [Ativan] 0.25 mg PO HS 12/27/16 [Last Taken Unknown] Metoprolol Succinate [Toprol Xl] 50 mg PO TID 12/27/16 [Last Taken Unknown] Miconazole Nitrate [Micro-Guard] 1 appful TP BID 12/27/16 [Last Taken Unknown] Triamcinolone Acetonide [Kenalog 0.1%] 1 appl TP BID 12/27/16 [Last Taken Unknown] Umeclidinium [place] [Incruse Ellipta] 1 puff IH DAILY 12/27/16 [Last Taken Unknown] Vitamin E [E-Cream] 1 appl TP TID 12/27/16 [Last Taken Unknown] Exam - Exam Vital Signs: Vital Signs - Last Taken Temp 36.4 C L 12/27/16 16:00 Pulse 108 H 12/27/16 16:00 Resp 18 12/27/16 16:00 BP 128/81 12/27/16 16:00 Pulse Ox 94 12/27/16 16:00 Constitutional: Present: Alert, Oriented x3, No distress ENT Exam: Present: normal ENT inspection, hearing grossly normal. Absent: nasal drainage, pharyngeal erythema Eye Exam: bilateral eye: normal inspection, PERRL Neck: Present: full range of motion, supple, normal inspection Back Exam: Present: normal inspection Breasts: Present: Exam deferred Respiratory: Present: rales - Bilateral bases Cardiovascular/Chest: Present: normal peripheral pulses, regular rate, rhythm, no murmur Abdomen: Present: Normal bowel sounds, obese /Rectal: Present: Exam deferred Extremity: Present: non-tender, no calf tenderness, lower extremity edema - + 3- 4 Tibial/pedal Edema., slow capillary refill Skin Exam: Present: other - Excoriated Myrtle rectal areas and Lower abd folds. Erythema on Percy. Thighs and BLE. Neurologic: Present: no motor/sensory deficits, alert, normal mood/affect, oriented x 3. Absent: dizzy/light-headedness Appearance: Present: impaired insight Eye contact: Present: cooperative, good eye contact, normal speech Thoughts: Present: no apparent hallucination Diagnostic Studies: Laboratory Results WBC 6.9 K/mm3 (4.0-10.5) 12/27/16 13:02 RBC 4.21 M/mm3 (4.2-5.4) 12/27/16 13:02 Hgb 10.2 gm/dL (12.5-16.0) L 12/27/16 13:02 Hct 35.5 % (37.0-47.0) L 12/27/16 13:02 MCV 84.3 fl (78-100) 12/27/16 13:02 MCH 24.2 pg (27-31) L 12/27/16 13:02 MCHC 28.7 g/dl (32-36) L 12/27/16 13:02 RDW 20.7 % (11.5-14.0) H 12/27/16 13:02 Plt Count 324 K/mm3 (150-450) 12/27/16 13:02 MPV 10.1 fl (6.0-9.5) H 12/27/16 13:02 Immature Gran % (Auto) 1.20 % (0.001-0.429) H 12/27/16 13:02 Immature Gran # (Auto) 0.08 K/mm3 (0.000-0.0310) H 12/27/16 13:02 Neutrophils % 67.1 % (42-75.0) 12/27/16 13:02 Lymphocytes % 17.8 % (20-51) L 12/27/16 13:02 Monocytes % 8.8 % (0.0-9) 12/27/16 13:02 Eosinophils % 4.5 % (0.0-3.0) H 12/27/16 13:02 Basophils % 0.6 % (0.0-1.0) 12/27/16 13:02 Nucleated RBC % 0.0 k/mm3 (0-1) 12/27/16 13:02 Neutrophils # 4.6 K/mm3 (1.3-6.0) 12/27/16 13:02 Lymphocytes # 1.2 k/mm3 (1.5-3.5) L 12/27/16 13:02 Monocytes # 0.6 k/mm3 (0.0-1.0) 12/27/16 13:02 Eosinophils # 0.3 k/mm3 (0.0-0.7) 12/27/16 13:02 Absolute Basophils 0.0 k/mm3 (0.0-0.1) 12/27/16 13:02 PT 12.0 Seconds (9.4-11.4) H 12/27/16 13:02 INR (Anticoag Therapy) 1.15 INR (0.90-1.10) H 12/27/16 13:02 PTT (Bibb) 24.5 Seconds (24-32) 12/27/16 13:02 Sodium 139 mmol/L (132-142) 12/27/16 13:02 Plasma Sodium 139 mmol/L (130-142) 12/27/16 13:02 Potassium 3.5 mmol/L (3.4-4.6) 12/27/16 13:02 Chloride 97 mmol/L (97-106) 12/27/16 13:02 Carbon Dioxide 34.2 mmol/L (24-32.6) H 12/27/16 13:02 Anion Gap 11.3 mmol/L (6.8-13.8) 12/27/16 13:02 BUN 43 mg/dL (3-23) H 12/27/16 13:02 Creatinine 1.35 mg/dL (0.4-1.4) 12/27/16 13:02 Est GFR (Non-Af Amer) 41 mL/min (60-130) L 12/27/16 13:02 BUN/Creatinine Ratio 31.9 (9.0-21.6) H 12/27/16 13:02 Random Glucose 127 mg/dL (70-110) H 12/27/16 13:02 Lactic Acid, Venous 1.4 mmol/L (0.4-1.9) 12/27/16 13:02 Calcium 9.1 mg/dL (7.9-10.9) 12/27/16 13:02 Calcium Adj for Albumin 9.7 mg/dL (8.4-10.2) 12/27/16 13:02 Iron 48 mcg/dL (35-120) 12/27/16 18:57 TIBC 271 mcg/dL (260-445) 12/27/16 18:57 Transferrin % Sat 18 % (15-55) 12/27/16 18:57 Total Bilirubin 0.8 mg/dL (0.0-1.1) 12/27/16 13:02 AST 29 U/L (0-48) 12/27/16 13:02 ALT 31 U/L (19-67) 12/27/16 13:02 Alkaline Phosphatase 323 U/L (50-170) H 12/27/16 13:02 Troponin I Less than 0.017 ng/ml (0.00-0.10) 12/27/16 13:02 B-Natriuretic Peptide 8900 pg/mL (5-325) H 12/27/16 13:02 Total Protein 6.9 gm/dL (6.2-8.2) 12/27/16 13:02 Albumin 2.9 gm/dl (3.4-5.0) L 12/27/16 13:02 Assessment/Plan - Assessment/Plan (1) Acute exacerbation of CHF (congestive heart failure) Assessment: Pt is noted to have Peripheral Edema. CXR did not show Pulmonary Edema, but this cannot be excluded due to Rales on lungs Auscultation. Did not diurese fully at the ED with 60mg of IV Lasix. Given another 120 mg and metolazone at the Med-Surge Unit. Will determine daily doses based on fluid volume status. Monitor I/Os, Daily wt and BMP in am Problem: Acute (2) Cellulitis Assessment: Pt has had erythematous marlys on Abd. folds, Myrtle,Thighs and lower extremities since last hospital admission on 11/10/16. She did receive treatment with Vanco, Bactrim and Cipro during that admission. Dermatology was consulted and she was started on Diflucan Bactrim & Miconazole and triamcinolone. The redness still persist on today's presentation and believe that the swelling may be worsening the situation. Will continue with Miconazole for the body folds. She is not febrile & WBC is in NR and therefore antibiotics may be unnecessary. May start Diflucan po and Antibiotics if WBC goes up or if she develops fevers. CBC in am. Problem: Acute Qualifiers: Site of cellulitis: unspecified site Qualified Code(s): L03.90 - Cellulitis , unspecified (3) Generalized weakness Assessment: Involve PT/OT; Encourage Ambulation. Problem: Acute (4) Diabetes mellitus Assessment: Monitor- AC/HS accu check. SSI & Lantus. Problem: Chronic (5) A-fib Assessment: Place on Telemetry Monitoring, Problem: Chronic (6) HTN (hypertension) Problem: Chronic Qualifiers: Hypertension type: essential hypertension Qualified Code(s): I10 - Essential (primary) hypertension
[2016-12-27] MEDS: INSULIN LISPRO 100 UNITS/ML VIAL SC SCH (20:34)
[2016-12-27] MEDS ORDERED: INSULIN GLARGINE,HUM.REC.ANLOG 100 UNITS/ML VIAL SC SCH (21:00)
[2016-12-27] MEDS ORDERED: ACETAMINOPHEN 325 MG TABLET PO SCH (21:00)
[2016-12-27] MEDS ORDERED: LORazepam 0.5 MG TABLET PO SCH (21:00)
[2016-12-27] MEDS ORDERED: TRIAMCINOLONE ACETONIDE 80 APPL TUBE TP SCH (21:00)
[2016-12-27] MEDS ORDERED: MICONAZOLE NITRATE 85 APPL BTL TP SCH (21:00)
[2016-12-27 21:01] LABS: Urine Bilirubin Negative (NEGATIVE); Urine Ketone Negative (NEGATIVE); Urine Nitrite Negative (NEGATIVE); Urine Protein Negative (NEGATIVE); Urine Urobilinogen Normal (NORMAL)
[2016-12-27] MEDS: BUDESONIDE 0.5 MG/2 ML VIAL.NEB IH SCH (21:01)
[2016-12-27 21:17] LABS: Urine Amorphous Sediment Moderate - 2+ (NONE-FEW); Urine Appearance Clear; Urine Bacteria 1+; Urine Blood 10 /ul (NEGATIVE); Urine Coarse Granular Cast TRACE /LPF; Urine Color Yellow; Urine RBC None Seen /hpf (0-5); Urine WBC None Seen /hpf (0-5)
[2016-12-28] MEDS: NYSTATIN 15 APPL BTL TP SCH ×2 (02:36→09:16)
[2016-12-28 05:31] LABS: Hematocrit 33.6 % (37.0-47.0); Hemoglobin 9.9 gm/dL (12.5-16.0); Mean Cell Volume 83.4 fl (78-100); Mean Corpuscular Hemoglobin 24.6 pg (27-31); Mean Corpuscular Hgb Conc 29.5 g/dl (32-36); Mean Platelet Volume 10.3 fl (6.0-9.5); Neutrophil # 6.7 K/mm3 (1.3-6.0); Platelet Count 302 K/mm3 (150-450); Red Blood Count 4.03 M/mm3 (4.2-5.4); Red Cell Distribution Width 20.7 % (11.5-14.0); White Blood Count 9.1 K/mm3 (4.0-10.5)
[2016-12-28 05:34] LABS: BUN/Creatinine Ratio 34.9 (9.0-21.6); Estimated Creat Clear 28.3; Potassium 3.4 mmol/L (3.4-4.6)
[2016-12-28 05:55] LABS: Anion Gap 12.2 mmol/L (6.8-13.8); Carbon Dioxide 31.2 mmol/L (24-32.6)
[2016-12-28] MEDS: BUDESONIDE 0.5 MG/2 ML VIAL.NEB IH SCH (06:02)
[2016-12-28] MEDS ORDERED: ACETAMINOPHEN 325 MG TABLET PO PRN (06:19)
[2016-12-28] MEDS: INSULIN LISPRO 100 UNITS/ML VIAL SC SCH (06:55)
[2016-12-28 07:53] VITALS: BP 132/66
[2016-12-28] MEDS ORDERED: COD LIVER OIL/ZINC OXIDE 113 APPL TUBE TP SCH (09:00)
[2016-12-28] MEDS ORDERED: NON-FORMULARY 1 DOSE DOSE (Umeclidinium Bromide [Incruse Ellipta] 1 PUFF) IH SCH (09:00)
[2016-12-28] MEDS ORDERED: ASPIRIN 81 MG TABLET.DR PO SCH (09:00)
[2016-12-28] MEDS ORDERED: FLUTICASONE PROPIONATE 120 SPRAY INHALER NS SCH (09:00)
[2016-12-28] MEDS ORDERED: VITAMIN E TP SCH (09:00)
[2016-12-28] MEDS ORDERED: METOPROLOL SUCCINATE 50 MG TABLET.SA PO SCH ×2 (09:00)
--- NOTE | 2016-12-28 11:56 | DS ---
Transfer Discharge Summary - Course Description of Stay: Jayson is a 71 year old [facility]. Patient was given high dose iv lasix and diuresed less than 1000 ml overnight. Due to poor response to iv lasix, and history of needing ultrafiltration in the past, the patient was transferred to [facility] for further treatment and evaluation, including speciality treatment by critical care and nephrology with the possibility of ultrafiltration. Consultation Done:: none Procedures Performed: none - Results and Findings Results and Findings: Laboratory Results - last 24 hr 12/27/16 12/27/16 12/28/16 18:57 20:50 05:30 WBC RBC Hgb Hct MCV MCH MCHC RDW Plt Count MPV Immature Gran % (Auto) Immature Gran # (Auto) Neutrophils % Lymphocytes % Monocytes % Eosinophils % Basophils % Nucleated RBC % Neutrophils # Lymphocytes # Monocytes # Eosinophils # Absolute Basophils Sodium 138 Plasma Sodium 139 Potassium 3.4 Chloride 98 Carbon Dioxide 31.2 Anion Gap 12.2 BUN 45 H Creatinine 1.29 Est GFR (Non-Af Amer) 43 L BUN/Creatinine Ratio 34.9 H Random Glucose 136 H Calcium 9.0 Iron 48 TIBC 271 Transferrin % Sat 18 Urine Color Yellow Urine Appearance Clear Urine pH 6.0 Ur Specific [place] 1.010 Urine Protein Negative Urine Glucose (UA) Negative Urine Ketones Negative Urine Blood 10 H Urine Nitrate Negative Urine Bilirubin Negative Urine Urobilinogen Normal Ur Leukocyte Esterase Negative Urine RBC None seen Urine WBC None seen Ur Epithelial Cells 0-5 Amorphous Sediment Moderate - 2+ H Urine Bacteria 1+ H Hyaline Casts 5-10 H Coarse Granular Casts Trace Urine Culture Comments Culture to follow 12/28/16 05:30 WBC 9.1 D RBC 4.03 L Hgb 9.9 L Hct 33.6 L MCV 83.4 MCH 24.6 L MCHC 29.5 L RDW 20.7 H Plt Count 302 MPV 10.3 H Immature Gran % (Auto) 0.90 H Immature Gran # (Auto) 0.08 H Neutrophils % 73.0 Lymphocytes % 14.1 L Monocytes % 9.0 Eosinophils % 2.5 Basophils % 0.5 Nucleated RBC % 0.0 Neutrophils # 6.7 H Lymphocytes # 1.3 L Monocytes # 0.8 Eosinophils # 0.2 Absolute Basophils 0.1 Sodium Plasma Sodium Potassium Chloride Carbon Dioxide Anion Gap BUN Creatinine Est GFR (Non-Af Amer) BUN/Creatinine Ratio Random Glucose Calcium Iron TIBC Transferrin % Sat Urine Color Urine Appearance Urine pH Ur Specific [place] Urine Protein Urine Glucose (UA) Urine Ketones Urine Blood Urine Nitrate Urine Bilirubin Urine Urobilinogen Ur Leukocyte Esterase Urine RBC Urine WBC Ur Epithelial Cells Amorphous Sediment Urine Bacteria Hyaline Casts Coarse Granular Casts Urine Culture Comments - Medications Medications: Active Medications Discontinued Medications Acetaminophen (Tylenol) 650 mg PO HS [facility] Stop: 01/26/17 21:01 Last Admin: 12/27/16 20:33 Dose: 650 mg Acetaminophen (Tylenol) 650 mg PO QID PRN PRN Reason: Headache Stop: 01/27/17 09:01 Last Admin: 12/28/16 06:54 Dose: 650 mg Aspirin (Aspirin Enteric Coated) 81 mg PO DAILY [facility] Stop: 01/27/17 09:01 Last Admin: 12/28/16 09:13 Dose: 81 mg Budesonide (Pulmicort Respules) 0.5 mg IH BIDRT [facility] Stop: 01/26/17 21:01 Last Admin: 12/28/16 06:02 Dose: 0.5 mg Fluticasone Propionate (Flonase) 1 spray NS DAILY [facility] Stop: 01/27/17 09:01 Last Admin: 12/28/16 09:14 Dose: 1 spray Furosemide (Lasix) 60 mg IV ONCE ONE Stop: 12/27/16 12:40 Last Admin: 12/27/16 13:07 Dose: 60 mg Furosemide 120 mg/ Sodium (Chloride) 112 mls @ 224 mls/hr IV ONCE ONE Stop: 12/27/16 20:14 Last Infusion: 12/27/16 22:04 Dose: Infused Insulin Glargine (Lantus) 10 units SC [facility] Stop: 01/26/17 21:01 Last Admin: 12/27/16 20:39 Dose: 10 units Insulin Human Lispro (Humalog) 0 - [facility] PRN Reason: Protocol Stop: 01/26/17 21:01 Last Admin: 12/28/16 06:55 Dose: Not Given Lorazepam (Ativan) 0.25 mg PO [facility] Stop: 01/26/17 21:01 Last Admin: 12/27/16 20:32 Dose: 0.25 mg Metolazone (Zaroxolyn) 1.25 mg PO ONCE@1930 [facility] Stop: 01/26/17 19:31 Last Admin: 12/27/16 20:31 Dose: 1.25 mg Metoprolol Succinate (Toprol Xl) 50 mg PO Q8H [facility] Stop: 01/27/17 09:01 Last Admin: 12/28/16 09:13 Dose: 50 mg Miconazole Nitrate (Desenex) 1 appl TP BID [facility] Stop: 01/26/17 21:01 Last Admin: 12/27/16 20:32 Dose: Not Given Nystatin (Mycostatin Powder) 1 appl TP QID [facility] Stop: 01/27/17 02:16 Last Admin: 12/28/16 09:16 Dose: 1 appl Spironolactone (Aldactone) 100 mg PO DAILY@1999 [facility] Stop: 01/26/17 20:01 Last Admin: 12/27/16 20:36 Dose: 100 mg Triamcinolone Acetonide (Kenalog 0.1%) 1 appl TP BID [facility] Stop: 01/26/17 21:01 Last Admin: 12/27/16 20:32 Dose: Not Given - Disposition Disposition: [facility] Condition: Undetermined Discharge Date: 12/28/16 Discharge Time: 09:46
== END 2016-12-28 09:25 | disposition short-term general hospital (02) | DRG 292 ==
LOC: ER 11:35 → MS 15:06
PROVIDERS: ADMIT Nurse Practitioner Critical Care Medicine; ATTEND Allergy & Immunology
DX: I50.33 Acute on chronic diastolic (congestive) heart failure (principal); L03.116 Cellulitis of left lower limb; L03.115 Cellulitis of right lower limb; Z68.42 Body mass index [BMI] 45.0-49.9, adult; E66.01 Morbid (severe) obesity due to excess calories; J44.9 Chronic obstructive pulmonary disease, unspecified; E11.9 Type 2 diabetes mellitus without complications; I10 Essential (primary) hypertension; R53.1 Weakness; I48.2 Chronic atrial fibrillation; Z79.4 Long term (current) use of insulin; Z79.82 Long term (current) use of aspirin

== ENCOUNTER 2017-03-26 10:15 | Emergency (ER) | payer MEDICARE, OTHER, BC ==
[2017-03-26 10:35] VITALS: BP 159/61
--- NOTE | 2017-03-26 11:00 | ERNOTE ---
Trauma/Assault HPI - General Stated Complaint: FALL Time Seen by Provider: 03/26/17 10:18 Source: patient, family Exam Limitations: no limitations - Immun/Allergies/Home Medications Immunizations: IMMUNIZATION HX Immunizations Up to Date Yes History of Influenza Vaccine No Hx Pneumococcal Vaccination No Allergies/Adverse Reactions: Allergies Penicillins Allergy (Verified 12/27/16 12:07) Home Medications: HOME MEDICATIONS Hydrochlorothiazide [Hydrodiuril] 12.5 mg PO DAILY 11/10/16 [Last Taken Unknown] Insulin Glargine,Hum.rec.anlog [Lantus] 10 units SC HS 11/10/16 [Last Taken Unknown] glipiZIDE [Glucotrol] 5 mg PO DAILY@0700 11/10/16 [Last Taken Unknown] Acetaminophen [Mapap] 650 mg PO HS 12/27/16 [Last Taken Unknown] Aspirin [Aspirin EC] 81 mg PO DAILY 12/27/16 [Last Taken Unknown] Budesonide [Pulmicort Respules] 2 ml IH BID 12/27/16 [Last Taken Unknown] Bumetanide 2 mg PO BID 12/27/16 [Last Taken Unknown] Cephalexin [Keflex] 500 mg PO QID 12/27/16 [Last Taken Unknown] Cod Liver Oil/Zinc Oxide [Desitin] 1 appl TP TID 12/27/16 [Last Taken Unknown] Ergocalciferol (Vitamin D2) [Vitamin D2] 50,000 unit PO Q7D 12/27/16 [Last Taken Unknown] Fluconazole [Diflucan] 200 mg PO DAILY 12/27/16 [Last Taken Unknown] Fluticasone Furoate [Flonase Sensimist] 1 spray NS DAILY 12/27/16 [Last Taken Unknown] Formoterol Fumarate [Perforomist] 20 mcg IH BID 12/27/16 [Last Taken Unknown] Insulin Lispro [Humalog] 0 - 12 units SC ACHS 12/27/16 [Last Taken Unknown] Ipratropium [place] 0.2 mg IH Q4H PRN 12/27/16 [Last Taken Unknown] LORazepam [Ativan] 0.25 mg PO HS 12/27/16 [Last Taken Unknown] Metoprolol Succinate [Toprol Xl] 50 mg PO TID 12/27/16 [Last Taken Unknown] Miconazole Nitrate [Micro-Guard] 1 appful TP BID 12/27/16 [Last Taken Unknown] Triamcinolone Acetonide [Kenalog 0.1%] 1 appl TP BID 12/27/16 [Last Taken Unknown] Umeclidinium [place] [Incruse Ellipta] 1 puff IH DAILY 12/27/16 [Last Taken Unknown] Vitamin E [E-Cream] 1 appl TP TID 12/27/16 [Last Taken Unknown] - History of Present Illness Date (Duration): 03/26/17 Narrative: Patient was getting ready for a doctor's appointment (which she thought was at 10) when she lost control of her walker and fell forward landing on her knees and elbows and her glasses scraped her nose, denies any loss of consciousness. The only place that hurts is her nose Location Occurred: Reports: home Pain Location: Reports: face Method of Injury: Reports: fall Loss of Consciousness: Reports: no loss of consciousness Review of Systems - Review of Systems Constitutional: Absent: recent illness, fever Respiratory: Present: shortness of breath - chronic at baseline Cardiology: Absent: chest pain Gastrointestinal/Abdominal: Absent: nausea, abdominal pain Musculoskeletal: Present: no symptoms reported Skin: Present: See HPI Neurological: Absent: weakness, numbness - Patient's Past Medical History Patient History - Medical: Diabetes Type 2 Insulin Dependent, Obesity Patient History - Cardiac/Respiratory: Atrial Fibrillation, CHF, COPD, Hypertension, Home O2 Use Patient History - Cancer: No Hx of Cancer Patient History - Surgical Procedures: Cholecystectomy, EGD Patient History - Other: None - Family History Mother Family History - Medical: Family History - Cardiac/Respiratory: No pertinent hx Family History - Cancer: No pertinent family hx Father Family History - Medical: Family History - Cardiac/Respiratory: No pertinent hx, CVA/Stroke Family History - Cancer: No pertinent family hx - Social History Living Situations: home Abuse History: No History of abuse Psych History: No pertinent hx Smoking Status: Former smoker Have you smoked in the past 12 months: No Alcohol Use: none Drug Use: none - Immunizations Immunizations Up to Date: Yes Hx Pneumococcal Vaccination: No History of Influenza Vaccine: No Physical Exam - Physical Exam General Appearance: Present: wd/wn, alert, no apparent distress, obese Head Exam: Present: no evidence of injury - except superficial abrasion on bridge of nose, no deformity, minimal swelling and echymosis Eye Exam: Normal inspection: bilateral, PERRL: bilateral Neck: Present: normal inspection, nontender, supple Respiratory: Present: no respiratory distress, normal breath sounds, no accessory muscle use, lungs clear Cardiovascular/Chest: Present: regular rate, rhythm, no murmur Gastrointestinal/Abdominal: Present: normal bowel sounds, nontender, nondistended, other - obese, significant intertrigo under panus Back Exam: Present: normal inspection, no vertebral tenderness, other - stage 2 decubitus ulcer sacrum Extremity Exam: Present: normal range of motion, pedal edema - chronic edema with stasis dermatitis ED Progress - Vital Signs Patient's Vital Signs:: I have reviewed the patient's vital signs. Vital Signs: Vital Signs 03/26/17 10:22 Temperature 36.9 C Pulse Rate 105 H Respiratory 14 Rate Blood Pressure 159/61 O2 Sat by Pulse 80 L Oximetry - Progress/Reassessment Chief Complaint: Fall Progress Note-Subjective: 03/26/17 10:[address] Hogue, will see patient in clinic as scheduled discussed with family and patient need to have chronic problems addressed by PCP Departure Clinical Impression: Intertrigo, Generalized weakness Fall Qualifiers: Encounter type: initial encounter Qualified Code(s): W19.XXXA - Unspecified fall, initial encounter Nasal abrasion Qualifiers: Encounter type: initial encounter Qualified Code(s): S00.31XA - Abrasion of nose, initial encounter Decubitus ulcer of sacral area Qualifiers: Pressure ulcer stage: stage 2 Qualified Code(s): L89.152 - Pressure ulcer of sacral region, stage 2 - Departure Disposition: Home self-care Condition: Fair Instructions: Abrasion, [id number] Additional Instructions: see Dr Hogue as scheduled in the clinic to treat your for your chronic problems Referrals: Willis Bryan MD [Primary Care Provider] -
== END 2017-03-26 11:35 | disposition home or self-care (01) ==
LOC: ER 10:15
DX: S00.31XA Abrasion of nose, initial encounter (principal); L30.4 Erythema intertrigo; R53.1 Weakness; L89.152 Pressure ulcer of sacral region, stage 2; W01.0XXA Fall on same level from slipping, tripping and stumbling without subsequent striking against object, initial encounter; Y92.009 Unspecified place in unspecified non-institutional (private) residence as the place of occurrence of the external cause

== ENCOUNTER 2017-09-15 04:57 | Emergency (ER) | payer MEDICARE, BC, MEDICAID ==
[2017-09-15] MEDS ORDERED: METOPROLOL TARTRATE 1 MG/ML AMPUL IV ONE (05:31)
[2017-09-15] MEDS: METOPROLOL TARTRATE 1 MG/ML AMPUL IV ONE (05:32)
--- NOTE | 2017-09-15 05:34 | ERNOTE ---
CARDIAC HPI - Narrative Date of Service: 09/15/17 - General Stated Complaint:: fall on ice while going to dialysis. Hit her upper lip. Has bad teeth. No LOC. No other injury. Not on blood thinners. History of AF, says heart always goes fast. Denies chest pain or SOB. Time Seen by Provider: 09/15/17 05:05 Source: patient Exam Limitations: other - memory - History of Present Illness Initial Comments: Fall with lip injury. Was heading for dialysis. Timing/Duration: 1/2 hour Severity: mild Activities at Onset: activity - walking Nitro Today/Relief: no nitro taken today Associated Symptoms: Present: cough. Absent: chest pain, nausea, vomiting, seizure, shortness of breath - Immun/Allergies/Home Medicatons Immunizations: IMMUNIZATION HX Immunizations Up to Date Yes History of Influenza Vaccine No Hx Pneumococcal Vaccination No Allergies/Adverse Reactions: Allergies Allergy/AdvReac Type Severity Reaction Status Date / Time Penicillins Allergy Verified 12/27/16 12:07 Home Medications: Ambulatory Orders Medication Instructions Recorded Acetaminophen 325 mg PO QID PRN 09/15/17 Aripiprazole [Abilify] 2 mg PO DAILY 09/15/17 Aspirin [Aspirin EC] 325 mg PO DAILY 09/15/17 Atorvastatin Calcium 40 mg PO DAILY 09/15/17 Bisacodyl [Dulcolax Suppository] 10 mg RC DAILY PRN 09/15/17 Bumetanide 1 mg PO BID 09/15/17 Calcium Acetate [Phoslo] 667 mg PO TID 09/15/17 Cholecalciferol (Vitamin D3) 1,000 unit PO DAILY 09/15/17 [Vitamin D3] Ferrous Sulfate 325 mg PO DAILY 09/15/17 Fluticasone Propionate [Flonase 2 spray NS DAILY PRN 09/15/17 Allergy Relief] Insulin Glargine,Hum.rec.anlog 6 unit SQ HS 09/15/17 [Lantus Solostar] Insulin Lispro [Humalog] 6 unit SQ AC 09/15/17 Levothyroxine Sodium [Synthroid] 50 mcg PO DAILY 09/15/17 Magnesium Oxide [Magnesium] 400 mg PO DAILY 09/15/17 Polyethylene Glycol 3350 [Miralax] 17 gm PO DAILY PRN 09/15/17 Sennosides [Senna Lax] 2 tab PO DAILY PRN 09/15/17 Review of Systems - Review of Systems Constitutional: Absent: chills, fever Respiratory: Present: cough. Absent: short of breath Cardiology: Present: palpitations. Absent: chest pain, syncope Gastrointestinal/Abdominal: Absent: abdominal pain, nausea, vomiting Genitourinary: Present: no symptoms reported Skin: Present: no symptoms reported Endocrine: Absent: unexplained weight loss - Patient's Past Medical History Patient History - Medical: Diabetes Type 2 Insulin Dependent, Obesity, Renal Disease Patient History - Cardiac/Respiratory: Atrial Fibrillation, CHF, COPD, Hypertension Patient History - Cancer: No Hx of Cancer Patient History - Surgical Procedures: Cholecystectomy, EGD Patient History - Other: None - Family History Mother Family History - Medical: Family History - Cardiac/Respiratory: No pertinent hx Family History - Cancer: No pertinent family hx Father Family History - Medical: Family History - Cardiac/Respiratory: No pertinent hx, CVA/Stroke Family History - Cancer: No pertinent family hx - Social History Living Situations: spouse Abuse History: No History of abuse Psych History: No pertinent hx Smoking Status: Former smoker Have you smoked in the past 12 months: No Do you dip or chew tobacco: No Patient requests Smoking Cessation Consult: No Initiate information on Smoking Cessation: No Alcohol Use: none Drug Use: none - Immunizations Immunizations Up to Date: Yes Hx Pneumococcal Vaccination: No History of Influenza Vaccine: No CP Exam - Physical Exam General Appearance: Present: WD/WN, mild distress Eyes, Ears, Nose, Throat Exam: Present: other - carious teeth with many missing , minor laceration right upper lip, no repair required. Neck: Present: non-tender, full range of motion, supple Respiratory: Present: chest non-tender, no accessory muscle use, decreased breath sounds - in bases, No rales, No wheezing Cardiovascular/Chest: Present: tachycardia, extra beats, irregularly irregular - AF with RVR, edema - 1+ Gastrointestinal/Abdominal: Present: normal bowel sounds, soft. Absent: tenderness Skin Exam: Present: warm/dry, pallor ED Progress - PROGRESS/REASSESSMENT Chief Complaint: Laceration - VITAL SIGNS Patient's Vital Signs:: I have reviewed the patient's vital signs. Vital Signs - Last Taken Temp 37.2 C 09/15/17 05:04 Pulse 149 H 09/15/17 05:04 Resp 16 09/15/17 05:04 BP 151/76 09/15/17 05:04 Pulse Ox 91 09/15/17 05:04 - RESULTS AND ORDERS Patient's Lab Results:: I have reviewed the patient's lab results. - X-Ray X-Ray #1 XRAY: chest X-Ray Interpretation: Reviewed by me - stable Departure - Departure Clinical Impression: Lip laceration, (HFpEF) heart failure with preserved ejection fraction, Diabetes mellitus, Atrial fibrillation with RVR Disposition: Home self-care Condition: Stable Instructions: Atrial Fibrillation, [id number], Fall Prevention in the Home Additional Instructions: Go directly to dialysis. Referrals: Willis Bryan MD [Primary Care Provider] -
[2017-09-15 05:38] LABS: Hemoglobin 12.1 gm/dL (12.5-16.0); Mean Cell Volume 89.9 fl (78-100); Mean Corpuscular Hemoglobin 27.9 pg (27-31); Neutrophil # 6.8 K/mm3 (1.3-6.0); Neutrophil % 72.4 % (42-75.0); Platelet Count 243 K/mm3 (150-450); Red Blood Count 4.34 M/mm3 (4.2-5.4); Red Cell Distribution Width 13.5 % (11.5-14.0); White Blood Count 9.4 K/mm3 (4.0-10.5)
[2017-09-15 05:59] LABS: ALT 12 U/L (19-67); AST 12 U/L (0-48); Alkaline Phosphatase * 137 U/L (50-170); Anion Gap 12.4 mmol/L (6.8-13.8); BNP * 19094 pg/mL (5-325); Bilirubin, Total 0.5 mg/dL (0.0-1.1); Blood Urea Nitrogen 49 mg/dL (3-23); Ca. Corrected For Albumin 9.9 mg/dL (8.4-10.2); Calcium * 9.4 mg/dL (7.9-10.9); Carbon Dioxide 29.1 mmol/L (24-32.6); Chloride 96 mmol/L (97-106); Glucose * 148 mg/dL (70-110); Potassium 4.5 mmol/L (3.4-4.6); Sodium 133 mmol/L (132-142); Total Protein 6.4 gm/dL (6.2-8.2)
[2017-09-15 06:10] LABS: Troponin I Less than 0.017 ng/ml (0.00-0.10)
[2017-09-15 08:50] VITALS: BP 115/56
== END 2017-09-15 08:36 | disposition home or self-care (01) ==
LOC: ER 04:57
DX: Z79.4 Long term (current) use of insulin; I10 Essential (primary) hypertension; Y93.01 Activity, walking, marching and hiking; Z87.891 Personal history of nicotine dependence; I48.91 Unspecified atrial fibrillation; W00.0XXA Fall on same level due to ice and snow, initial encounter; I50.30 Unspecified diastolic (congestive) heart failure; E11.9 Type 2 diabetes mellitus without complications; Y92.480 Sidewalk as the place of occurrence of the external cause; S09.93XA Unspecified injury of face, initial encounter

== ENCOUNTER 2017-10-09 08:17 | Emergency (ER) | payer MEDICARE, MEDICAID ==
[2017-10-09] MEDS ORDERED: DIPHTH,PERTUSS(ACELL),TET VAC 0.5 ML VIAL IM ONE (08:27)
[2017-10-09 09:58] VITALS: BP 138/62
--- NOTE | 2017-10-09 10:12 | ERNOTE ---
ENT HPI Date of Service: 10/09/17 Presenting Symptoms: other - facial injury Time Seen by Provider: 10/09/17 08:24 Source: patient Exam Limitations: no limitations - Immun/Allergies/Home Medications Immunizations: IMMUNIZATION HX Immunizations Up to Date Yes History of Influenza Vaccine No Hx Pneumococcal Vaccination No Allergies/Adverse Reactions: Allergies Allergy/AdvReac Type Severity Reaction Status Date / Time Penicillins Allergy Verified 12/27/16 12:07 Home Medications: HOME MEDICATIONS Acetaminophen 325 mg PO QID PRN 09/15/17 [Last Taken Unknown] Aripiprazole [Abilify] 2 mg PO DAILY 09/15/17 [Last Taken Unknown] Aspirin [Aspirin EC] 325 mg PO DAILY 09/15/17 [Last Taken Unknown] Atorvastatin Calcium 40 mg PO DAILY 09/15/17 [Last Taken Unknown] Bisacodyl [Dulcolax Suppository] 10 mg RC DAILY PRN 09/15/17 [Last Taken Unknown ] Bumetanide 1 mg PO BID 09/15/17 [Last Taken Unknown] Calcium Acetate [Phoslo] 667 mg PO TID 09/15/17 [Last Taken Unknown] Cholecalciferol (Vitamin D3) [Vitamin D3] 1,000 unit PO DAILY 09/15/17 [Last Taken Unknown] Ferrous Sulfate 325 mg PO DAILY 09/15/17 [Last Taken Unknown] Fluticasone Propionate [Flonase Allergy Relief] 2 spray NS DAILY PRN 09/15/17 [ Last Taken Unknown] Insulin Glargine,Hum.rec.anlog [Lantus Solostar] 6 unit SQ HS 09/15/17 [Last Taken Unknown] Insulin Lispro [Humalog] 6 unit SQ AC 09/15/17 [Last Taken Unknown] Levothyroxine Sodium [Synthroid] 50 mcg PO DAILY 09/15/17 [Last Taken Unknown] Magnesium Oxide [Magnesium] 400 mg PO DAILY 09/15/17 [Last Taken Unknown] Polyethylene Glycol 3350 [Miralax] 17 gm PO DAILY PRN 09/15/17 [Last Taken Unknown] Sennosides [Senna Lax] 2 tab PO DAILY PRN 09/15/17 [Last Taken Unknown] Clindamycin HCl 150 mg PO QID 7 Days #28 capsule 10/09/17 [Last Taken Unknown] - History of Present Illness Narrative: Patient presents to the ED for facial injury. She relates that she was waling with her slippers and her toe caught causing her to fall forward and hit her face. She was wearing her glasses. No LOC. No other injuries, only nose pain. No neck pain, no LOC, no CP or SOB. Pain moderate at her nose. No vision problems. No back pain or extremity pain. No N/T/W. Severity: Present: moderate ENT Location: Present: nose Prearrival Treatment: Present: squeezing nostrils Modifying Factors - Improves: Reports: rest Modifying Factors - Worsens: Reports: other - palpation Associated Symptoms - ENT: Reports: facial pain/swelling. Denies: fever, voice change, sore throat Prior Treament: Denies: recently seen Review of Systems - Review of Systems Constitutional: Absent: fever EYE: Absent: vision changes ENT: Present: See HPI. Absent: sore throat Respiratory: Absent: shortness of breath Cardiology: Absent: chest pain Gastrointestinal/Abdominal: Absent: abdominal pain Musculoskeletal: Present: other - denies injury Skin: Present: See HPI Neurological: Absent: weakness - Patient's Past Medical History Patient History - Medical: Diabetes Type 2 Insulin Dependent, Obesity, Renal Disease Patient History - Cardiac/Respiratory: Atrial Fibrillation, CHF, COPD, Hypertension Patient History - Cancer: No Hx of Cancer Patient History - Surgical Procedures: Cholecystectomy, EGD Patient History - Other: None LMP (females 10-50): Menopausal - Family History Mother Family History - Medical: Family History - Cardiac/Respiratory: No pertinent hx Family History - Cancer: No pertinent family hx Father Family History - Medical: Family History - Cardiac/Respiratory: No pertinent hx, CVA/Stroke Family History - Cancer: No pertinent family hx - Social History Living Situations: home Abuse History: No History of abuse Psych History: No pertinent hx Alcohol Use: sober Drug Use: none - Immunizations Immunizations Up to Date: Yes Hx Pneumococcal Vaccination: No History of Influenza Vaccine: No Physical Exam - Physical Exam General Appearance: Present: alert, no apparent distress Head Exam: Present: other. Absent: Cha's Sign, raccoon eyes Eye Exam: Normal inspection: bilateral, PERRL: bilateral, EOMI: bilateral, Other : bilateral - No hyphema Ears, Nose, Throat: Present: other - There is a well approximated stallate laceration of the dorsum of the nose. No FB. Nasal tendenress here. THere is septal deviation to the right but no clear nasal septal hematoma noted. No other facial bone tenderness. No otorrhea. No intra-oral injury noted. Neck: Present: normal inspection, other - mild muscular tendenress, neg CT, no suggestion of fracture or ligamentous injury, cleared after CT. Respiratory: Present: no respiratory distress, normal breath sounds, lungs clear Cardiovascular/Chest: Present: regular rate, rhythm Gastrointestinal/Abdominal: Present: normal bowel sounds, nontender, soft Back Exam: Present: normal inspection, normal range of motion, no vertebral tenderness Extremity Exam: Present: normal inspection, non-tender, other - no findings of extremity injury found Neurological Exam: Present: alert, normal mood/affect, no motor/sensory deficits Skin Exam: Present: normal color, warm/dry ED Progress - Vital Signs Patient's Vital Signs:: I have reviewed the patient's vital signs. Vital Signs: Vital Signs 10/09/17 10/09/17 10/09/17 08:19 08:22 09:11 Temperature 36.7 C 36.7 C 36.8 C Pulse Rate 130 H 130 H 137 H Respiratory 20 20 18 Rate Blood Pressure 136/50 136/50 122/60 O2 Sat by Pulse 96 96 92 Oximetry - CT/Ultrasound CT/Ultrasound Narrative: I reviewed official radiology reports of head CT, maxillofacial CT and c-spine CT. - Progress/Reassessment Chief Complaint: Nose Pain/Injury Progress Note-Subjective: 10/09/17 10:[address] Abdullahi, he reviewed the CT images, recommends ABx and Friday office appt. The stellate laceration is well approximated and steri-strips have been placed. I do not feel sutures or glue would help in this instance. I spoke with pharmacy for clinda dosing in renal failure. Patient feels like going home. I discussed warning signs and reasons to return as well as the need for close f/u. Her HR came down nicely as she calmed down in the ED. Departure Clinical Impression: Nasal bone fracture, Laceration, Fall - Departure Disposition: Home self-care Condition: Stable Instructions: Nasal Fracture, [id number] Additional Instructions: I have spoken with Dr Abdullahi, he requests you take antibiotics and are seen Friday in the office. You have an appointment Friday at 1:45 with ENT. Ice. Rest. Return for signs of infection or if your condition worsens or changes in any way. Referrals: Orville Abdullahi MD [Courtesy Staff] - Prescriptions: Clindamycin HCl 150 mg PO QID 7 Days #28 capsule
== END 2017-10-09 10:04 | disposition home or self-care (01) ==
LOC: ER 08:17
DX: S02.2XXA Fracture of nasal bones, initial encounter for closed fracture (principal); S01.21XA Laceration without foreign body of nose, initial encounter; W01.10XA Fall on same level from slipping, tripping and stumbling with subsequent striking against unspecified object, initial encounter